=== PATIENT | male | born 1950 | race Two or more races ===

== ENCOUNTER 2020-04-19 08:33 | Outpatient (CLI) | payer OTHER, SELFPAY ==
--- NOTE | ~2020-04-19 | XR_ITS ---
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 The procedure including the risks, benefits, and alternatives was discussed with the pat ient. Risks discussed included bleeding and infection. The patient understood the risks and agreed to proceed. The skin overlying the left hip joint was prepped and draped in usual sterile fashion. An esthetic was administered with 1% lidocaine subcutaneously. A 22 G needle was advanced under fluoros copic guidance into the joint. Injection of 0.6 mL of Omnipaque 240 confirmed intra-articular positi on of the needle. Subsequently, injectate consisting of 7 mm of a 5:2 mixture of 1% lidocaine: 10 mg /mL Kenalog for a total dosage of 20 mg Kenalog was instilled. Washout of contrast was seen confirmin g intra-articular administration. The needle was removed and the entry site was cleaned and dressed. There were no immediate complications. Fluoroscopy exposure time was 0.1 minutes. The total number o f images was 2. FINDINGS: Real-time fluoroscopy demonstrates the needle in the left hip joint. Patient's pain prior t o procedure:4/10. Patient's pain following the procedure: 2/10. Large osteophyte versus heterotopic ossification along the superolateral margin of the left acetabulum near the footplate of the reflecte d head of the rectus femoris tendon. IMPRESSION: 1. Left hip joint injection of local anesthetic and steroid with decrease in the patient's presenting pain. Reviewed, dictated and finalized at location A. IMPRESSION: 1. Left hip joint injection of local anesthetic and steroid with decrease in th e patient's presenting pain.
== END 2020-04-19 08:34 | disposition home or self-care (01) ==
LOC: ANHIMG 08:46
PROVIDERS: PCP Family Medicine Adolescent Medicine; Visit Provider Orthopaedic Surgery
DX: M16.12 Unilateral primary osteoarthritis, left hip (principal)
CPT/HCPCS: 20610; 77002; J3301; Q9966

== ENCOUNTER 2021-02-11 08:20 | Outpatient (CLI) | payer OTHER, SELFPAY ==
--- NOTE | ~2021-02-11 | XR_ITS ---
EXAMINATION: XR lg joint inject/asp w image DATE: 02/11/2021 09:10 INDICATION: Unilateral primary osteoarthritis, left hip. TECHNIQUE: A time-out was performed to verify the patient's name, date of , and procedure to b e performed. The procedure including the risks, benefits, and alternatives was discussed with the pat ient. Risks discussed included bleeding and infection. The patient understood the risks and agreed to proceed. The skin overlying the left hip joint was prepped and draped in usual sterile fashion. An esthetic was administered with 1% lidocaine subcutaneously. A 22 G needle was advanced under fluoros copic guidance into the joint. Injection of 1 mL of Omnipaque 240 confirmed intra-articular position of the needle. Subsequently, injectate consisting of 5 mL 1% lidocaine and 2 mL 10 mg/mL Kenalog wa s instilled. The needle was removed and the entry site was cleaned and dressed. There were no immed iate complications. Fluoroscopy exposure time was 0.1 minutes. The total number of images was 2. FINDINGS: Real-time fluoroscopy demonstrates the needle in the left hip joint. Patient's pain prior t o procedure:09/15. Patient's pain following the procedure: 09/15. IMPRESSION: 1. Fluoroscopy guided left hip joint injection of local anesthetic and steroid . Reviewed, dictated and finalized at location A.
== END 2021-02-11 08:21 | disposition home or self-care (01) ==
PROVIDERS: PCP Family Medicine Adolescent Medicine; Visit Provider Orthopaedic Surgery
DX: M16.11 Unilateral primary osteoarthritis, right hip (principal)
CPT/HCPCS: 20610; 77002; J3301; Q9966

== ENCOUNTER → 2021-03-04 13:18 | Outpatient (CLI) | payer OTHER, SELFPAY ==
--- NOTE | ~2021-03-04 | XR_ITS ---
EXAMINATION: XR foot RT min 3V EXAM DATE: 03/04/2021 13:42 INDICATION: Worsening pain in right foot at 5th metatarsal. TECHNIQUE: Right foot dorsoplantar, lateral and oblique projections obtained and reviewed. There is no prior study for comparison. FINDINGS: Right metatarsal bones unremarkable. Small calcaneal spurs. There are no acute fractures o r dislocations identified. There is no subcutaneous gas. The soft tissue is unremarkable. There a re no radiopaque foreign bodies. There is mild polyarticular primary osteoarthritis. IMPRESSION: Mild right facet degenerative changes. Reviewed, dictated and finalized at location A.
== END ==
PROVIDERS: PCP Family Medicine Adolescent Medicine; Visit Provider Family Medicine Adolescent Medicine
DX: M79.671 Pain in right foot (principal)
CPT/HCPCS: 73630

== ENCOUNTER → 2021-06-24 11:01 | Outpatient (CLI) | payer OTHER, SELFPAY ==
--- NOTE | ~2021-06-24 | XR_ITS ---
EXAMINATION: XR shoulder RT min 2V DATE: 06/24/2021 11:48 INDICATION: Right shoulder pain. TECHNIQUE: 4 views of right shoulder were obtained. COMPARISON: None. FINDINGS: Bone alignment is normal. No fracture. There is mild osteoarthritis of glenohumeral joint a nd acromioclavicular joint. IMPRESSION: 1. Mild polyarticular osteoarthritis. Reviewed, dictated and finalized at location A.
== END ==
PROVIDERS: Visit Provider Orthopaedic Surgery
DX: M19.011 Primary osteoarthritis, right shoulder (principal)
CPT/HCPCS: 73030

== ENCOUNTER 2021-07-21 10:15 | Outpatient (RCR) | payer OTHER, SELFPAY ==
--- NOTE | 2021-06-30 11:04 | PTOPEVAL ---
Thank you for referring Faizan Whiteside to [facility].? The patient is scheduled to be seen for therapy 2 x/week for 4 weeks. Please review, sign, date and return this plan of care JOHN. I agree with and certify that the following plan of care is medically necessary. Referring Physician Date Attending Provider: Ryan Bernardo MD Problem Diagnosis right shoulder pain Onset chronic Subjective Information He works out 1x/wk with bands, Query Text:As Reported By Patient/ he walks daily for 1 mile. He Family reports increased ache pain of his shoulder. Increased pain with golf.Denies any limitations with reaching task for ADL's. He has increased pain with heavy lifting, yardwork. If he sleeps on right shoulder he will have increased pain. Diagnostic Tests X-Rays For This Problem Yes: Mild polyarticular osteoarthritis Pain Assessment Right Shoulder(s) Reported Pain Level 1 Pain Description Aching Pain Frequency Chronic Lowest Pain Intensity 1 Greatest Pain Intensity 7 Pain Aggravating Factors Exercise/Activity,Lifting Pain Behaviors None Upper Extremity Range of Motion Scapular/ Shoulder Range of Motion Left Shoulder Flexion - Active 150 Shoulder Extension - Active 42 Shoulder Abduction - Active 160 Shoulder Medial Rotation - Active 70 Shoulder Medial Rotation - Active L1:Reach Behind the Back Shoulder Lateral Rotation - Active 70 Shoulder Lateral Rotation - Active T2:Reach Behind the Head Right Shoulder Flexion - Active 147 Shoulder Extension - Active 48 Shoulder Abduction - Active 148 Shoulder Medial Rotation - Active 60 Shoulder Medial Rotation - Active T12:Reach Behind the Back Shoulder Lateral Rotation - Active 70 Shoulder Lateral Rotation - Active T2:Reach Behind the Head Scapular/Shoulder Range of Motion Pain Limitations Upper Extremity Muscle Strength Testing General Upper Extremity Strength Gross Upper Extremity Strength Comments grossly 4+/5 with pain with right ext. rot. resistance only boom middle trap: 2+/5, lower trap 2/5 Muscle Length Testing Latissmus Dorsi Muscle Length (R) Severe Tightness,(L) Severe Tightness Pectoralis Major- Sternal Fibers Muscle (R) Moderate Tightness,(L) Length Moderate Tightness Pectoralis Major- Clavicular Fibers (L) Mild Tightness,(L)
--- NOTE | 2021-07-28 10:19 | PCPTNOTE ---
Patient did not show up for scheduled appointment this date. Called and left message regarding his remaining visits.
--- NOTE | 2021-07-28 13:49 | PCPTNOTE ---
Admitting Provider: Attending Provider: Ryan Bernardo MD Patient:Faizan Whiteside Date of :1950 Physical Therapy Discharge Summary Patient has requested his remaining therapy visits be canceled due to does not feel therapy is improving his shoulder pain and limitations. He initial visit was on 06/30/2021 10:00 and he had a total of 6 visits. The goals have been not met due to canceled his reassessment. Thank you for referring this patient to [facility]. Please review, sign, date and return this discharge summary JOHN. I have been updated about the patient's current status and I agree with discharge from the above service at this time. Referring Physician Date
== END 2021-07-29 09:29 | disposition home or self-care (01) ==
LOC: ANHPT 10:15
PROVIDERS: PCP Family Medicine Adolescent Medicine; Visit Provider Orthopaedic Surgery
DX: M25.511 Pain in right shoulder (principal); G89.29 Other chronic pain
CPT/HCPCS: 97014; 97110; 97140; 97162; G0283

== ENCOUNTER → 2021-09-01 07:45 | Outpatient (CLI) | payer OTHER, SELFPAY ==
--- NOTE | ~2021-09-01 | MR_ITS ---
EXAMINATION: MR shoulder RT wo con DATE: 09/01/2021 08:38 INDICATION: Right shoulder pain. TECHNIQUE: Magnetic resonance imaging (MRI) of the right shoulder was performed without intravenous c ontrast. Sequences included axial PD-weighted FS FSE, coronal oblique PD-weighted FS FSE and T2-weigh pamela FS FSE, and sagittal oblique T2-weighted FS FSE and T1-weighted FSE. COMPARISON: Right shoulder radiographs 06/24/2021 FINDINGS: Coracoacromial arch: The acromion undersurface is flat in morphology (type I). There is hypertrophy of bone at the acromio clavicular joint. There may be changes of distal clavicle resection. There is mild subacromial/subdel toid bursitis. There is an 8 x 5 mm ganglion cyst anterior to the acromioclavicular joint. Rotator cuff: There is severe anterior supraspinatus tendinopathy with bursal sided fraying. There is moderate infr aspinatus tendinopathy. Teres minor tendon is normal. There is mild subscapularis tendinopathy. There is mild fatty atrophy of the rotator cuff muscle bellies. Biceps tendon and glenoid labrum: Biceps tendon is in bicipital groove. Intra-articular biceps tendon is normal. There is a tear of sup erior labrum from 11:00 to 12:00 (SLAP tear). Fluid: There is a small glenohumeral joint effusion. Bones/cartilage: There is cartilage surface irregularity of glenoid and humeral head. IMPRESSION: 1. Severe rotator cuff tendinopathy with shallow bursal sided fraying of supraspinatus tendon. 2. Mild glenohumeral joint chondrosis. SLAP tear. 3. Small glenohumeral joint effusion. 4. Mild subacromial/subdeltoid bursitis. 5. Small ganglion cyst anterior to the acromioclavicular joint. Reviewed, dictated and finalized at location A. D CONSULTANT IMPRESSION: 1. Severe rotator cuff tendinopathy with shallow bursal sided fraying of supras pinatus tendon. 2. Mild glenohumeral joint chondrosis. SLAP tear. 3. Small glenohumeral joint effusion. 4. Mild subacromial/subdeltoid bursitis. 5. Small ganglion cyst anterior to the acromioclavicular joint.
== END ==
PROVIDERS: PCP Family Medicine Adolescent Medicine; Visit Provider Orthopaedic Surgery
DX: M75.51 Bursitis of right shoulder (principal); M25.411 Effusion, right shoulder
CPT/HCPCS: 73221

== ENCOUNTER 2021-10-13 08:28 | Outpatient (CLI) | payer OTHER, SELFPAY ==
--- NOTE | 2021-10-13 08:45 | ECG_ITS ---
Measurements Intervals [place] Rate: 71 P: 31 MS: 177 QRS: 5 QRSD: 97 T: 40 QT: 349 QTc: 380 Interpretive Statements SINUS RHYTHM INCOMPLETE RIGHT BUNDLE BRANCH BLOCK BASELINE ARTIFACT- I, II, III, AVR, AVL, AVF, V4-V6 BORDERLINE ECG Electronically Signed On 10-13-2021 9:01:56 MILKING MACHINE OPERATOR by Thierno Garcia D.O.
[2021-10-13 11:02] LABS: Anion Gap 6 mmol/L (8-16); Blood Urea Nitrogen 16 mg/dL (9-20); Calcium 9.2 mg/dL (8.4-10.2); Carbon Dioxide 24 mmol/L (22-30); Chloride 105 mmol/L (98-107); Estimated Glomerular Filt Rate > 60; Glucose 157 mg/dL (65-110); Potassium 4.3 mmol/L (3.4-5.0); Sodium 135 mmol/L (137-145)
== END 2021-10-13 08:29 | disposition home or self-care (01) ==
LOC: ANHSURGERY 08:34
PROVIDERS: Anesthesiology; PCP Family Medicine Adolescent Medicine; Visit Provider Orthopaedic Surgery
DX: Z01.818 Encounter for other preprocedural examination (principal); E11.9 Type 2 diabetes mellitus without complications; I10 Essential (primary) hypertension
CPT/HCPCS: 36415; 80048; 93005

== ENCOUNTER 2021-10-20 02:03 | Day surgery (SDC) | payer OTHER, SELFPAY ==
[2021-10-10 15:13] VITALS: BMI 28.6
--- NOTE | 2021-10-10 15:31 | PC.NURSE ---
Report to the Outpatient Waiting Room, entrance under the green pavilion located off [facility], at time __11:30AM on date _10/20/21 . OR Time: ___1:30PM . - You will be asked a series of questions to screen for COVID 19 for your protection. - A mask is required within the hospital. - No visitors are allowed at this time. Preoperative COVID Testing Requirements: No COVID Test needed if: (proof is required; if not received patient will have Rapid Test prior to entry) - Patient has received COVID Vaccine at least 14 days prior to procedure date or - Patient has positive COVID test result within last 90 days of surgery date. COVID Test needed if above criteria is not met If not COVID vaccinated a COVID test must be conducted within 72 hours of surgery and patient is asked to isolate self from time of testing until procedure. You will go to the [employer] [facility] Testing Site for your COVID testing. The [employer] [facility] is located at the corner of [address] [facility]. You will only be called if COVID results are positive and your surgeon may reschedule your elective surgery date. Patients may have clear liquids (water, carbonated beverages, clear teas, apple juice) until 3 hours prior to surgery with a maximum of 20 ounces. - No food from midnight until time of surgery - Infants may have breast milk until 4 hours before surgery, infant formula 6 hours prior to surgery. - Children will be allowed to drink immediately following surgery. If applicable, please bring a bottle or sippy cup to assist with drinking. Juice, water, soda, and popsicles are readily available. For infants on formula, please bring formula the day of surgery. Pacifiers are allowed. Take the following medications with a SIP of water the morning of surgery: ____NONE Medications to discontinue per physician NONE Date to take last dose Please no make-up, nail syriac, hairspray, perfume, deodorant, or body powder the day of surgery. No jewelry (including any body piercings) or valuables the day of surgery, leave them at home. Please take a shower or bath the night before, or the morning of, surgery with an antibacterial soap. Wear comfortable, loose fitting clothing. Children are encouraged to wear pajamas. - Jewelry must be removed prior to entering the operating room. Rings and piercings that are not removed may be cut off. - The hospital will not accept responsibility for valuables. - Please leave all valuables, including medications, at home the day of surgery. If you are going home after surgery, a licensed shuttle bus driver must drive you home. - NO public transportation without another adult. - We recommend that an adult stay with you for 24 hours following discharge. - We also recommend that you do not drive, make important decision, drink alcoholic beverages, or take any drugs that were not prescribed by your health care provider for at least 24 hours after your discharge time. For Pediatric surgeries, we recommend two adults accompany the child home (only one inside the building at this time). Follow any additional instructions given to you from your surgeon. Telephone instructions given to __PATIENT and asked if any additional questions and then verbalized understanding. Patient advised to call surgeon office or pre surgery nurse liaison [phone] if any additional questions.
[2021-10-20] VITALS (8 sets, daily range): BP systolic 105–152; BP diastolic 67–84; PULSE 62–82; RESP 12–16; TEMP 36.2–36.5; O2SAT 96–100
--- NOTE | 2021-10-20 07:57 | WPDANESEPPF ---
Anes - Initial Pre Proc Eval Procedure: Operation Date: 10/20/21 10:30 Proposed Procedures p Right Shoulder Acromioplasty with Distal Clavicle Excision - Ryan Bernardo MD Date/Time: 10/20/21 07:57 Surgeon: Ryan Bernardo MD Pre Op Diagnosis: right shoulder impingement AC arthritis Patient Data Age: 71 Gender: M Height: 1.7 m Weight: 83 kg Allergies Allergy/AdvReac Type Severity Reaction Status Date / Time morphine Allergy Unknown Dyspnea / Verified 10/14/21 13:07 SOB Home Medications Medication Instructions Recorded Confirmed Type glimepiride 1 mg tablet 1 mg PO BID 04/18/20 10/14/21 History ibuprofen 200 mg tablet 400 mg PO Q6H PRN 04/18/20 10/14/21 History losartan 100 mg tablet 100 mg PO HS 04/18/20 10/14/21 History metformin 500 mg tablet 500 mg PO QAM 04/18/20 10/14/21 History pantoprazole 40 mg tablet,delayed 40 mg PO HS 04/18/20 10/14/21 History release acetaminophen 325 mg capsule 650 mg PO Q6H PRN 07/30/20 10/14/21 History Patient hx anesthesia problems: none Family hx anesthesia problems: none Results Review: All pre-operative results and documents have been reviewed as part of the pre-operative evaluation. [facility] Past Medical History Medical History (Updated 10/20/21 @ 07:59 by Rodney Ragsdale MD) BMI 27.0-27.9,adult BPH (benign prostatic hyperplasia) Chronic GERD Diabetes Hemoglobin A1c less than 7.0% last noted to be 6.0 by pt HTN (hypertension) Hyperlipidemia Osteoarthritis Osteoarthritis of hips, bilateral Surgical History Surgical History H/O elbow surgery right elbow, 1999, Dr. Garcia H/O shoulder surgery bilateral, 2009 & 2014 Dr Dave History of neck surgery 1999 - neck fusion by Dr. Emerson Family History Family History Father Family history of lung cancer Mother Cancer Other Diabetes mellitus Hypertension Social History Social History Smoking packs per day: 1.5 Smoking cigarettes per day: 30.0 Years smoked: 25 Smoking pack-years: 37.50 Smoking status: Former smoker Tobacco type: cigarettes Smoking end date: 03/06/90 Alcohol intake: current Drinks per week: 3 Substance use: never Living arrangements: with family Additional living arrangements comments: AND CHILDREN Gender identity (if verbalized by the patient): Male Spiritual care concerns: No Anes - Eval Final PreProcedure Day of Procedure 10/20/21 07:57 Patient weight: overweight Heart: regular rate and rhythm Lungs: clear to auscultation and normal air movement Airway: Mallampati scale class II Neurological: alert and oriented Last oral intake: >/= 8 hours ASA classification: III Emergent: no Anesthetic plan: proceed Anesthesia type and monitoring: general LMA and ETT Results Review: All pre-operative results and documents have been reviewed as part of the pre-operative evaluation. Informed Consent: The patient's anesthetic plan and its attendant risks and benefits were discussed with the patient/family/POA. Questions were solicited and answers provided to the satisfaction of the patient/family/POA.
--- NOTE | 2021-10-20 07:59 | WPDANESPNB ---
Anes - Peripheral Nerve Block Date/Time: 10/20/21 07:59 I have discussed with the patient/family/POA the placement of a peripheral nerve block for post-operative pain management, including associated risks, benefits, complications, and side effects. Alternative methods of post-operative analgesia were detailed. Questions were solicited and answers provided to the satisfaction of the patient/family/POA. Time-Out: A pre-procedural Time-Out was completed immediately before starting the procedure and confirmed: Patient Identification, Site, Procedure, Patient Position and the Availability of Requisite Equipment. Clinical Indications: Acute post-operative pain management requested by the operative surgeon. Nerve Block Insertion Note Anes-nerve block: supraclavicular right Patient position: supine Skin prep: chlorhexidine Needle: 22 gauge, stimulating, insulated echogenic needle. Needle length: 80 mm Technique: ultrasound (in plane) Injectate: bupivacaine 0.5% with epi 5 mcg/ml (20cc) Observations: tolerated well Complications: none Procedure start time:: 1015 Procedure end time:: 1020
[2021-10-20] MEDS: ACETAMINOPHEN 500 MG TABLET 1000 MG PO (09:03)
[2021-10-20] MEDS: LACTATED RINGERS 1,000 ML 30 ML IV CONT ×2 (09:16→11:56)
[2021-10-20] MEDS: KETOROLAC 15 MG/ML VIAL (*BKC) IV PUSH (09:17)
[2021-10-20 09:25] LABS: Glucose Point of Care 158 mg/dl (65-105)
--- NOTE | 2021-10-20 09:32 | WPDHPUPDATE1 ---
History and Physical Update Update Date/Time: 10/20/21 09:32 History and Physical has been reviewed, including an updated exam of the patient. There are NO changes in the patient's condition. Risks, benefits, and alternatives have been discussed and questions answered. Patient agrees to proceed with procedure.
[2021-10-20] MEDS: ceFAZolin 2 GM/D5W 50 ML 2 GM/50 ML BAG IVPB (10:26)
[2021-10-20] MEDS: BUPIVACAINE/EPINEPHRINE 0.25% 10 ML VIAL INFILTRATE (11:04)
--- NOTE | 2021-10-20 11:52 | P.OP_ITS ---
Procedure Note - Detailed Date of Procedure 10/20/21 Pre-op Diagnosis right shoulder impingement AC arthritis Post-op Diagnosis same Procedure Performed Right shoulder acromioplasty, distal clavicle excision Surgeon Ryan Bernardo MD Electrician Constructor Supervisor Mahi Whaley Anesthesia general and regional Description of Procedure Patient was identified and proper site identified. In the preop holding area the anesthesia team performed a right upper extremity block. He was then taken to the operating room and transferred to the or table taking care to pad the torso and extremities. After general anesthetic induction and intubation, he was put in a semi beach chair position in the usual manner for a right shoulder procedure. His head was secured taking care to neither rotate nor extend the head and neck. The right upper extremity was prepped and draped free in usual sterile fashion. The subcutaneous tissue in the area of the incision was injected with 10 cc of 0.25% Marcaine and epinephrine solution. An oblique anterior incision was made extending from the AC joint distally in line with the fibers of the deltoid. Subcutaneous tissue was sharply dissected down to the deltoid fascia. The deltoid was dissected off the anterior portion of the acromion in the distal end of the clavicle. A 2 cm split was made at the junction between the anterior and middle thirds of the deltoid. Using the microsagittal saw the last 8 mm of clavicle removed. The saw was also used to perform the acromioplasty and then the undersurface of the acromion was rasped smooth. There was quite a bit of scarring in the area of the subacromial and subdeltoid space. This was freed up and then this allowed for debridement thickened bursa. After this was accomplished, the cuff was able to be inspected. There was an area of hyperemia the anterior portion of the supraspinatus insertion but no evidence for any full-thickness tearing. The wound was irrigated with sterile NaCl solution. The deltoid was repaired back to the acromion with 2. Ethibond suture passed through bone and the remainder of the deltoid repair carried out with 2. Vicryl. Subcutaneous tissue was reapproximated with 2. Strata fix and then tissue adhesive used for the skin. Sterile dressing was applied. There were no known intraoperative complications, and perioperative antibiotics were administered. Estimated Blood Loss 20 Drains No Packing No Pathology none sent Complications No immediate complications Condition stable Disposition PACU
[2021-10-20 12:15] LABS: Glucose Point of Care 169 mg/dl (65-105)
== END 2021-10-20 14:00 | disposition home or self-care (01) ==
PROVIDERS: PCP Family Medicine Adolescent Medicine; Visit Provider Orthopaedic Surgery
PROC: (CPT 23420; principal; 2021-10-20 10:30)
DX: M75.41 Impingement syndrome of right shoulder (principal); M19.011 Primary osteoarthritis, right shoulder; G89.18 Other acute postprocedural pain; I10 Essential (primary) hypertension; E11.9 Type 2 diabetes mellitus without complications; E78.5 Hyperlipidemia, unspecified; K21.9 Gastro-esophageal reflux disease without esophagitis; N40.0 Benign prostatic hyperplasia without lower urinary tract symptoms; Z79.84 Long term (current) use of oral hypoglycemic drugs; Z98.1 Arthrodesis status; Z87.891 Personal history of nicotine dependence
CPT/HCPCS: 23120; 23130; 64415; 36415; 80048; 82948; 93005; A4565; A9270; J0330; J0690; J1100; J1885; J2250; J2405; J2704; J3010; J7120

== ENCOUNTER 2021-10-21 03:46 | Emergency (ER) | payer OTHER, SELFPAY ==
--- NOTE | ~2021-10-21 | CT_ITS ---
EXAMINATION: CTA chest PE protocol DATE: 10/21/2021 06:52 INDICATION: Shortness of breath. Anterior chest wall pain. TECHNIQUE: Computed tomography angiography (CTA) of the chest was performed with 100 mL Omnipaque-350 intravenous contrast timed to evaluate the pulmonary arteries. Coronal maximum intensity projection 3D-reconstructions were created by the technologist. Automated exposure control and iterative reconst ruction technique were employed. The dose-length product was 651.69 mGy-cm. COMPARISON: Chest single view 10/21/2021 FINDINGS: There is mild atelectasis in the lungs, worst in right lower lobe. There is mild elevation of right hemidiaphragm. No pleural effusion. The heart size is normal. No pericardial effusion. A marie cified right hilar lymph node is consistent with old granulomatous disease. There is no pulmonary emb olus. There is diffuse hepatic steatosis. There are gallstones in the gallbladder, which is normal in size. There are bridging endplate osteophytes at multiple levels in the spine, consistent with diffu se idiopathic skeletal hyperostosis (DISH). IMPRESSION: 1. No pulmonary embolus. 2. Mild atelectasis in the lungs, worst in right lower lobe with mild elevation of right hemidiaphrag m. Reviewed, dictated and finalized at location A. MENT CONTROL CLERK IMPRESSION: 1. No pulmonary embolus. 2. Mild atelectasis in the lungs, worst in right lower lobe with mild elevation of right hemidiaphragm.
--- NOTE | ~2021-10-21 | XR_ITS ---
EXAMINATION: XR chest 1V portable DATE: 10/21/2021 04:29 INDICATION: Shortest of breath. Chest pain. TECHNIQUE: A single frontal view of the chest was obtained. COMPARISON: Chest 2 views 10/13/2016, chest CT 10/21/2021 FINDINGS: There is mild elevation of right hemidiaphragm. There is mild atelectasis at right lung bas e. No pleural effusion or pneumothorax. The heart size is normal. IMPRESSION: 1. Mild atelectasis at right lung base and worsened mild elevation of right hemidiaphragm. Reviewed, dictated and finalized at location A. ING MACHINE OPERATOR IMPRESSION: 1. Mild atelectasis at right lung base and worsened mild elevation of right hem idiaphragm.
[2021-10-21 03:55] VITALS: BP 173/99; PULSE 73; RESP 19; O2SAT 100
--- NOTE | 2021-10-21 04:02 | ECG_ITS ---
Measurements Intervals [place] Rate: 87 P: 20 UT: 184 QRS: 0 QRSD: 102 T: 28 QT: 352 QTc: 424 Interpretive Statements SINUS RHYTHM INCOMPLETE RIGHT BUNDLE BRANCH BLOCK DELAYED PRECORDIAL R/S TRANSITION BASELINE ARTIFACT- I, III, AVL, AVF, V4-V6 BORDERLINE ECG Electronically Signed On 10-21-2021 6:27:15 FOOD PREPARATION WORKER by Thierno Garcia D.O.
[2021-10-21 04:08] VITALS: BP 173/99; PULSE 88; RESP 14; TEMP 36.5; O2SAT 97
[2021-10-21 04:40] LABS: Basophils Percent Auto 0.2 % (0.2-1.2); Eosinophils Percent Auto 0.2 % (0-4.4); Hematocrit 39.9 % (42.0-52.0); Hemoglobin 13.5 g/dL (14.0-18.0); Immature Granulocyte Absolute 0.03 K/mm3 (0.00-0.031); Immature Granulocyte Percent A 0.2 % (0-0.5); Lymphocytes Absolute Auto 1.64 K/mm3 (0.9-3.2); Lymphocytes Percent Auto 13.6 % (18.3-44.2); Mean Corpuscular HGB Conc 33.8 g/dl (32-36); Mean Corpuscular Hemoglobin 31.8 pg (26-34); Mean Corpuscular Volume 93.9 fl (80-100); Mean Platelet Volume 9.6 fl (7.4-10.4); Monocytes Absolute Auto 1.6 K/mm3 (0.1-0.6); Monocytes Percent Auto 13.2 % (2.6-8.5); Neutrophils Absolute Auto 8.7 K/mm3 (1.3-6.7); Neutrophils Percent Auto 72.6 % (45.5-73.1); Platelet Count Result 178 k/mm3 (150-375); Red Blood Count 4.25 M/mm3 (4.6-6.20); Red Cell Distribution Width 13.3 % (11.5-14.5)
[2021-10-21 04:55] LABS: Alanine Aminotransferase 59 U/L (4-50); Albumin Level 4.5 g/dL (3.5-5.1); Alkaline Phosphatase 96 U/L (38-126); Anion Gap 11 mmol/L (8-16); Aspartate Amino Transferase 40 U/L (17-59); Bilirubin,Total 0.5 mg/dL (0.2-1.3); Blood Urea Nitrogen 15 mg/dL (9-20); Calcium 8.8 mg/dL (8.4-10.2); Carbon Dioxide 23 mmol/L (22-30); Chloride 107 mmol/L (98-107); Estimated CRCL calculation 64 ml/min; Estimated Glomerular Filt Rate > 60; Glucose 143 mg/dL (65-110); Lipase 168 U/L (23-300); Potassium 4.6 mmol/L (3.4-5.0); Prothrombin Time 12.6 Seconds (11.1-14.7); Sodium 141 mmol/L (137-145)
[2021-10-21 04:58] LABS: D Dimer 0.37 ug/mL (<0.48)
[2021-10-21 05:06] LABS: Troponin I < 0.012 ng/mL (0.000-0.034)
[2021-10-21 05:17] LABS: NT Pro B Type Natriuretic Pept 189 pg/mL (5-100)
--- NOTE | 2021-10-21 06:05 | ED.SOB ---
HPI - SOB/Dyspnea General Chief Complaint: Shortness of Breath/Dyspnea Stated Complaint: short of breath Time Seen by Provider: 10/21/21 04:31 Source: patient Mode of arrival: ambulatory Limitations: no limitations History of Present Illness HPI Narrative: Patient is a 71-year-old male complaining of I just cannot take a deep breath accompanied by shortness of breath on exertion that started last night. Patient states that he recently had shoulder surgery yesterday. Patient denies any chest pain, abdominal pain, and nausea, vomiting, diaphoresis, fever or chills. Related Data Home Medications Medication Instructions Recorded Confirmed glimepiride 1 mg tablet 1 mg PO BID 04/18/20 10/20/21 ibuprofen 200 mg tablet 400 mg PO Q6H PRN 04/18/20 10/20/21 losartan 100 mg tablet 100 mg PO HS 04/18/20 10/20/21 metformin 500 mg tablet 500 mg PO QAM 04/18/20 10/20/21 pantoprazole 40 mg tablet,delayed 40 mg PO HS 04/18/20 10/14/21 release acetaminophen 325 mg capsule 650 mg PO Q6H PRN 07/30/20 10/20/21 Allergies Allergy/AdvReac Type Severity Reaction Status Date / Time morphine Allergy Unknown Dyspnea / Verified 10/20/21 12:07 SOB Review of Systems Review of Systems: All systems reviewed & are unremarkable except as noted in HPI and below Constitutional: Constitutional: Denies body ache(s), Denies chills, Denies excessive sweating, Denies fatigue, Denies fever(s), Denies headache(s), Denies lethargy, Denies malaise, Denies weakness and Denies weight loss Eyes: Eyes: Denies blurry vision, Denies change in vision and Denies loss of vision ENT: Denies dizziness, Denies ear discharge, Denies headache(s), Denies lip swelling, Denies epistaxis, Denies nasal congestion, Denies neck pain, Denies throat swelling and Denies tongue swelling Cardiovascular: Cardiovascular: Denies chest pain, Denies chest pain at rest, Denies chest pain with activity, Denies diaphoresis, Denies rapid heart rate, Denies edema, Denies irregular heart rhythm, Denies lightheadedness and Denies palpitations Respiratory: Respiratory: Denies chest congestion, Denies cough and Denies hemoptysis Gastrointestinal: Gastrointestinal: Denies abdominal pain, Denies melena, Denies hematochezia, Denies diarrhea, Denies nausea, Denies vomiting and Denies hematemesis Musculoskeletal: Musculoskeletal: Denies abnormal gait, Denies deformity, Denies joint swelling, Denies limited range of motion, Denies neck pain and Denies numbness Neurologic: Denies Abnormal speech present, Denies abnormal gait, Denies confusion, Denies dizziness, Denies headache(s), Denies focal weakness, Denies loss of vision, Denies numbness, Denies Other visual disturbances, Denies Sensory deficit (Neuro) and Denies weakness Psychiatric: Psychiatric: Denies confusion, Denies depression, Denies auditory hallucinations, Denies homicidal ideation and Denies suicidal ideation Endocrine: Endocrine: Denies cold intolerance, Denies excessive sweating, Denies fatigue, Denies heat intolerance and Denies palpitations Hematologic/Lymphatic: Hematologic/Lymphatic: Denies easy bleeding and Denies easy bruising Allergic/Immunologic: Allergic/Immunologic: Denies lip swelling, Denies throat swelling and Denies tongue swelling PMFSH Past Medical History Medical History BMI 27.0-27.9,adult BPH (benign prostatic hyperplasia) Chronic GERD Diabetes Hemoglobin A1c less than 7.0% last noted to be 6.0 by pt HTN (hypertension) Hyperlipidemia Osteoarthritis Osteoarthritis of hips, bilateral Surgical History Surgical History Arthritis of right acromioclavicular joint DCE with acromioplasty October 10, 2021 H/O elbow surgery right elbow, 2000, Dr. Garcia H/O shoulder surgery bilateral, 2009 & 2014 Dr Dave History of neck surgery 1999 - neck fusion by Dr. Emerson Family History Family History (Rev
[2021-10-21] MEDS: LACTATED RINGERS 1,000 ML 999 ML IV CONT (06:56)
[2021-10-21 07:26] LABS: Troponin I < 0.012 ng/mL (0.000-0.034)
[2021-10-21 08:03] VITALS: BP 164/81; PULSE 74; RESP 18; O2SAT 98
== END 2021-10-21 08:03 | disposition home or self-care (01) ==
PROVIDERS: Emergency Medicine; Emergency Provider Emergency Medicine; PCP Family Medicine Adolescent Medicine
DX: R06.00 Dyspnea, unspecified (principal); Z98.890 Other specified postprocedural states; E11.9 Type 2 diabetes mellitus without complications; I10 Essential (primary) hypertension; E78.5 Hyperlipidemia, unspecified; N40.0 Benign prostatic hyperplasia without lower urinary tract symptoms; K21.9 Gastro-esophageal reflux disease without esophagitis; M16.0 Bilateral primary osteoarthritis of hip; Z79.84 Long term (current) use of oral hypoglycemic drugs; Z87.891 Personal history of nicotine dependence
CPT/HCPCS: 36415; 71045; 71275; 80053; 83690; 83880; 84484; 85025; 85380; 85610; 85730; 93005; 96360; 99284; J7120; Q9967

== ENCOUNTER 2021-11-17 11:00 | Outpatient (RCR) | payer OTHER, SELFPAY ==
[2021-10-22 12:33] VITALS: BP_SYST 100
--- NOTE | 2021-10-22 13:26 | PTOPEVAL ---
PHYSICAL THERAPY EVALUATION AND PLAN OF CARE Thank you for referring Faizan Wh[facility] to [facility] The patient is scheduled to be seen for therapy? 2x/week for 4 weeks. Please review, sign, date and return this plan of care JOHN. I agree with and certify that the following plan of care is medically necessary. Referring Physician Date Attending Provider: Ryan Bernardo MD Evaluation Diagnosis right acromioplasty Onset 10/20/21 Subjective Information surgery for acromioplasty of Query Text:As Reported By Patient/ right shoulder; distal Family clavical excision. States he was told by physician to avoid reaching overhead. He is doing well overall. Has his sling around his neck but his arm is not in it. Self Report Pain Assessment Right Shoulder(s) Reported Pain Level 2 Pain Description Aching Greatest Pain Intensity 5 Pain Aggravating Factors Procedure or Surgery Other Pain Aggravating Factors using the arm; Pain Score Pain Score 2: Self Report Interventions Used Interventions Used By Clinicians Exercise,Manual Therapy Techniques Pain Relief Interventions Used By Ice,Medication Patient Upper Extremity Range of Motion Scapular/ Shoulder Range of Motion Right Shoulder Flexion - Passive 120 Shoulder Abduction - Passive 100 Shoulder Lateral Rotation - Passive 45 Scapular/Shoulder Range of Motion pain and discomfort noted when Comments performing PROM Upper Extremity Muscle Strength Testing General Upper Extremity Strength Gross Upper Extremity Strength Comments internal rotation at neutral: 4/5 external rotaiton at neutral: 3+/5; pain did not perform elevation MMT due to surgical procedure Posture Standing Position Head/C-Spine Posture Forward Head Thoracic Spine Posture Increased Kyphosis Shoulder Posture (L) Rounded,(R) Rounded,(L) Forward,(R) Forward Scapula Posture (L) Protracted,(R) Protracted PT Clinical Summary Faizan Gar) is a 71 yo male presenting to outpatient physical therapy 2 days s/p right acromioplasty and DCE. He presents with a good amount of swelling - educated on using elbow and wrist AROM to move fluid out of arm. Dante
--- NOTE | 2021-11-17 11:25 | PTOPEVAL ---
PHYSICAL THERAPY DISCHARGE NOTE Thank you for referring Faizan Whiteside to [facility].? Please review, sign, date and return this plan of care JOHN. I agree with and certify that the following plan of care is medically necessary. Referring Physician Date Attending Provider: Ryan Bernardo MD Discharge Diagnosis right acromioplasty Onset 10/20/21 Subjective Information surgery for acromioplasty of Query Text:As Reported By Patient/ right shoulder; distal Family clavical excision. States he was told by physician to avoid reaching overhead. He is doing well overall. Has his sling around his neck but his arm is not in it. Pain Assessment Timing of Pain Assessment Timing of Pain Assessment Assessment Self Report Self Report Pain Level 0 Pain Score Pain Score 0: Self Report Interventions Used Interventions Used By Clinicians Exercise,Ice,Manual Therapy Techniques Pain Relief Interventions Used By Ice,Medication Patient Upper Extremity Range of Motion Scapular/ Shoulder Range of Motion Right Shoulder Flexion - Active 150 Shoulder Abduction - Active 150 Shoulder Medial Rotation - Active L3 Query Text:Reach Behind the Back Shoulder Lateral Rotation - Passive 65 Scapular/Shoulder Range of Motion pain and discomfort noted when Comments performing PROM Upper Extremity Muscle Strength Testing Scapular/Shoulder Right Shoulder Flexion Strength 5 Normal Shoulder Abduction Strength 4+ Good + Shoulder Medial Rotation Strength 5 Normal Shoulder Lateral Rotation Strength 5 Normal Special Tests-Upper Extremity Shoulder Special Tests Empty Can (supraspinatus) Test Negative Right Painful Arc Negative Right General Exercise General Exercises Side Right Exercise Location shoulder Exercise Type Active,Active/Assistive Exercise Description reviewed HEP stretches and Query Text:Record Sets, Reps, strengthening exercises Resistance, and Position 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
== END 2021-11-18 10:23 | disposition home or self-care (01) ==
LOC: ANHPT 11:00
PROVIDERS: PCP Family Medicine Adolescent Medicine; Visit Provider Orthopaedic Surgery
DX: Z48.89 Encounter for other specified surgical aftercare (principal); Z98.890 Other specified postprocedural states
CPT/HCPCS: 97110; 97140; 97162; 97530

== ENCOUNTER → 2022-03-26 10:29 | Outpatient (CLI) | payer SELFPAY ==
--- NOTE | ~2022-03-26 | CT_ITS ---
EXAMINATION: CT abdomen pelvis w con DATE: 03/26/2022 10:59 INDICATION: Left lower quadrant abdominal pain. TECHNIQUE: Computed tomography (CT) of the abdomen and pelvis was performed with 100 mL Omnipaque 350 intravenous contrast. Automated exposure control and iterative reconstruction technique were employe d. The dose-length product was 872.10 mGy-cm. COMPARISON: None. FINDINGS: The visualized portions of the lung bases demonstrate minimal atelectasis. No pleural effus ion. The heart size is normal. No pericardial effusion. There are cysts in the liver measuring up to 12 mm. The spleen is normal. There are gallstones in the gallbladder, which is normal in size. The pa ncreas, adrenal glands, and kidneys are normal. The prostate is mildly enlarged. Densities in the pro state may be brachytherapy seeds. There is a left inguinal hernia containing fat. There are no dilate d loops of bowel. The appendix is normal. There are no pathologically enlarged lymph nodes. There is no free intraperitoneal fluid. There is mild lumbar spondylosis. IMPRESSION: 1. Left inguinal hernia containing fat. Reviewed, dictated and finalized at location A.
[2022-03-31 10:27] LABS: Estimated Glomerular Filt Rate > 60
== END ==
PROVIDERS: PCP Family Medicine Adolescent Medicine; Visit Provider Family Medicine Adolescent Medicine
DX: R10.32 Left lower quadrant pain (principal); K40.90 Unilateral inguinal hernia, without obstruction or gangrene, not specified as recurrent
CPT/HCPCS: 36415; 74177; 82565; Q9967

== ENCOUNTER 2022-04-23 01:03 | Day surgery (SDC) | payer OTHER, SELFPAY ==
[2022-04-20 10:42] VITALS: BMI 29.0
--- NOTE | 2022-04-20 10:49 | PC.NURSE ---
Report to the Outpatient Waiting Room, entrance under the green pavilion located off [facility], at time __1000 on date _04/23/22 . OR Time: ___1200 . - You and your visitor will be asked to self-screen and do not enter if you have any COVID symptoms. - Only one visitor and NO children visitors are allowed at this time. - The patient visitor is requested to leave or wait in car when not with patient due to restrictions. - A mask is required within the hospital. Patients may have clear liquids (water, carbonated beverages, clear teas, apple juice) until 3 hours prior to surgery (0900 AM) with a maximum of 20 ounces. - No food from midnight until time of surgery - Infants may have breast milk until 4 hours before surgery, formula 6 hours prior to surgery. - Children will be allowed to drink immediately following surgery. If applicable, please bring a bottle or sippy cup to assist with drinking. Juice, water, soda, and popsicles are readily available. For infants on formula, please bring formula the day of surgery. Pacifiers are allowed. Take the following medications with a SIP of water the morning of surgery: ____BACLOFEN IF NEEDED Medications to discontinue per physician IBUPROFEN PER DR. SINHA Date to take last dose Please no make-up, nail austrian, hairspray, perfume, deodorant, or body powder the day of surgery. No jewelry (including any body piercings) or valuables the day of surgery, leave them at home. Please take a shower or bath the night before, or the morning of, surgery with an antibacterial soap. Wear comfortable, loose fitting clothing. Children are encouraged to wear pajamas. - Jewelry must be removed prior to entering the operating room. Rings and piercings that are not removed may be cut off. - The hospital will not accept responsibility for valuables. - Please leave all valuables, including medications, at home the day of surgery. If you are going home after surgery, a licensed regional tanker truck driver must drive you home. - NO public transportation without another adult. - We recommend that an adult stay with you for 24 hours following discharge. - We also recommend that you do not drive, make important decision, drink alcoholic beverages, or take any drugs that were not prescribed by your health care provider for at least 24 hours after your discharge time. For Pediatric surgeries, we recommend two adults accompany the child home (only one inside the building at this time). Follow any additional instructions given to you from your surgeon. HIBICLENS SHOWER AM OF SURGERY If you or anyone in your household have experienced Covid symptoms in the past week, please notify your surgeon or the nurse liaison at the phone number below for possible testing. Telephone instructions given to ____PT and asked if any additional questions and then verbalized understanding. Patient advised to call surgeon office or pre surgery nurse liaison [phone] if any additional questions.
--- NOTE | 2022-04-23 07:49 | WPDANESEPPF ---
Anes - Initial Pre Proc Eval Procedure: Operation Date: 04/23/22 12:00 Proposed Procedures p Left Inguinal Hernia Repair - Roverto Goyal MD Date/Time: 04/23/22 07:49 Surgeon: Roverto Goyal MD Pre Op Diagnosis: left inguinal hernia Patient Data Age: 71 Gender: M Height: 1.7 m Weight: 84 kg Allergies Allergy/AdvReac Type Severity Reaction Status Date / Time morphine Allergy Unknown DIFFICULTY Verified 04/23/22 10:49 BREATHING/CAUSED LUNG COLLAPSE tamsulosin AdvReac Mild INCREASED Verified 04/23/22 10:49 VERTIGO/ED/LIGHT HEADED oxycodone Allergy Severe Difficulty Uncoded 04/23/22 10:49 Breathing/lung collapsed Home Medications Medication Instructions Recorded Confirmed Type ibuprofen 200 mg tablet (Advil) 400 mg PO Q6H PRN Pain 04/18/20 04/23/22 History finasteride 5 mg tablet 5 mg PO DAILY #90 tabs 11/21/21 04/23/22 Rx losartan 100 mg tablet 100 mg PO HS #90 tabs 02/09/22 04/23/22 Rx metformin 500 mg tablet,extended 500 mg PO DAILY #90 tabs 02/09/22 04/23/22 Rx release 24 hr atorvastatin 40 mg tablet 40 mg PO DAILY #90 tabs 02/23/22 04/23/22 Rx glimepiride 1 mg tablet See Rx Instructions PO BID #135 03/05/22 04/23/22 Rx tabs sildenafil (pulm.hypertension) 20 100 mg PO DAILY PRN sexual 03/24/22 04/20/22 Rx mg tablet activity #90 tabs pantoprazole 40 mg tablet,delayed 40 mg PO HS #90 tabs 04/08/22 04/23/22 Rx release baclofen 10 mg tablet 10 mg TID PRN Muscle Spasm 04/20/22 04/23/22 History Patient hx anesthesia problems: none Family hx anesthesia problems: none Results Review: All pre-operative results and documents have been reviewed as part of the pre-operative evaluation. [facility] Past Medical History Medical History BMI 27.0-27.9,adult Chronic GERD Diabetes Hemoglobin A1c less than 7.0% last noted to be 6.0 by pt HTN (hypertension) Hyperlipidemia Osteoarthritis Osteoarthritis of hips, bilateral Surgical History Surgical History Arthritis of right acromioclavicular joint DCE with acromioplasty October 10, 2021 H/O elbow surgery right elbow, 1999, Dr. Garcia H/O shoulder surgery bilateral, 2009 & 2014 Dr Dave History of neck surgery 1999 - neck fusion by Dr. Emerson History of umbilical hernia repair Family History Family History (Updated 04/07/22 @ 08:49 by Laure Balbuena MA) Father Family history of lung cancer Acute myocardial infarction Heart disease Mother Mesothelioma Other Diabetes mellitus Social History Social History Smoking packs per day: 1.5 Smoking cigarettes per day: 30.0 Years smoked: 25 Smoking pack-years: 37.50 Smoking status: Former smoker Tobacco type: cigarettes Second hand tobacco smoke exposure: No Smoking end date: 03/06/90 Alcohol intake: current Drinks per week: 3 Substance use: never Substance use type: does not use Living arrangements: with family Additional living arrangements comments: AND CHILDREN Gender identity (if verbalized by the patient): Male Sexual Orientation (if Verbalized by the Patient): Straight or Heterosexual Spiritual care concerns: No Agree to blood products: Yes Anes - Eval Final PreProcedure Day of Procedure 04/23/22 07:49 Patient weight: obese Heart: regular rate and rhythm Lungs: clear to auscultation Airway: Mallampati scale class 1 Neurological: alert and oriented Last oral intake: >/= 8 hours ASA classification: III Emergent: no Anesthetic plan: proceed Anesthesia type and monitoring: general GIVS and standard monitoring Results Review: All pre-operative results and documents have been reviewed as part of the pre-operative evaluation. Informed Consent: The patient's anesthetic plan and its attendant risks and benefits were discus
[2022-04-23 10:29] VITALS: BP 142/84; PULSE 70; RESP 20; TEMP 36.4; O2SAT 100
[2022-04-23] MEDS: ACETAMINOPHEN 500 MG TABLET 1000 MG PO (10:56)
[2022-04-23] MEDS: LACTATED RINGERS 1,000 ML 30 ML IV CONT ×2 (11:05→14:08)
[2022-04-23] MEDS: KETOROLAC 15 MG/ML VIAL (*BKC) IV PUSH (11:09)
[2022-04-23 11:14] LABS: Glucose Point of Care 92 mg/dl (65-105)
--- NOTE | 2022-04-23 12:03 | WPDHPUPDATE1 ---
History and Physical Update Update Date/Time: 04/23/22 12:03 History and Physical has been reviewed, including an updated exam of the patient. There are NO changes in the patient's condition. Risks, benefits, and alternatives have been discussed and questions answered. Patient agrees to proceed with procedure.
[2022-04-23] MEDS: ceFAZolin 2 GM/D5W 50 ML 2 GM/50 ML BAG IVPB (12:12)
[2022-04-23] MEDS: BUPIVACAINE/EPINEPHRINE 0.25% 50 ML VIAL INFILTRATE (12:34)
[2022-04-23 13:40] VITALS: BP 156/75; PULSE 81; RESP 18; O2SAT 100
--- NOTE | 2022-04-23 13:49 | W.PM.PROC2 ---
Procedure Note - Detailed Date of Procedure 04/23/22 Pre-op Diagnosis left inguinal hernia Post-op Diagnosis Same Procedure Performed Repair left inguinal hernia with large PerFix Light plug and patch Surgeon Roverto Goyal MD Project Developer CHRISTEL Bosch Anesthesia General (G IV S), Local (0.25% bupivacaine with epinephrine) and Other (Xaracoll) Indications Patient was having left groin and inguinal pain. He had a CT scan which showed a fat containing left inguinal hernia. Examined my office also showed a left inguinal hernia. He is taken to surgery now for left inguinal hernia repair Findings Patient had an indirect left inguinal hernia. Description of Procedure Patient was taken to surgery and anesthesia was introduced. The left groin and genitalia were prepped and draped. The proposed incision was marked on the skin. Local was infiltrated into the skin and the deeper subcutaneous tissues. Incision was made dissection was carried down through the subcutaneous. Crossing veins were cauterized and divided. Additional local was infiltrated. We continued our dissection through the subcutaneous and to the external oblique aponeurosis. The aponeurosis was exposed as was the external ring. We infiltrated additional local deep to the aponeurosis in the area of the inguinal canal and the spermatic cord. The aponeurosis was then opened laterally and extended medially through the external ring. Care was taken to preserve the ilioinguinal nerve which was left attached to the spermatic cord throughout the surgery. I then dissected the leaves of the aponeurosis free from the underlying inguinal canal contents. The cord was then mobilized medially on a Patricia drain. The cord was further mobilized back to the internal ring. I carefully looked for any direct hernia. None was found. I then dissected in the anteromedial aspect of the spermatic cord. Some fatty tissue was found and was dissected. It was excised and discarded. Hernia sac was found and dissected back to a high dissection. The sac was dunked into the retroperitoneum. The large PerFix Light plug was then placed in the defect. The edges were sutured to the transversalis fascia with interrupted 3-0 Vicryl suture. The defect was then partially closed with another 3-0 Vicryl suture. We then cut the patch to the appropriate size. The patch was placed over the inguinal canal floor with the lateral leaves passing beyond the cord. The 1st piece of Xaracoll was placed over the patch. The spermatic cord and ilioinguinal nerve were then laid over the Xaracoll. The external oblique aponeurosis was then closed with interrupted 3-0 Vicryl suture. The 2nd piece of Xaracoll was placed over the external oblique. Anastasiya's fascia was closed with interrupted 3-0 Vicryl suture. The last piece of Xaracoll was placed in the subcutaneous. The skin was loosely approximated with subcuticular 4-0 Vicryl interrupted suture. Finally the skin was closed with a running 4-0 Monocryl skin suture. The wound was dressed with Exofin surgical adhesive. The patient was awakened and taken to recovery in good condition. Sponge and needle counts were correct x2. Implants PerFix Light plug and patch, large; Xaracoll Estimated Blood Loss -5 Drains No Packing No Pathology None sent Complications No immediate complications Condition Stable Disposition Same day [facility] Billing Surgery - Charge Forward: Surgery Billing (Left inguinal hernia repair)
[2022-04-23 14:10] VITALS: BP 103/60; PULSE 72; RESP 18
[2022-04-23 14:24] LABS: Glucose Point of Care 113 mg/dl (65-105)
[2022-04-23 14:40] VITALS: BP 126/85; PULSE 69; RESP 16
== END 2022-04-23 15:06 | disposition home or self-care (01) ==
PROVIDERS: PCP Family Medicine Adolescent Medicine; Visit Provider Surgery
PROC: (CPT 49505; principal; 2022-04-23 12:00)
DX: K40.90 Unilateral inguinal hernia, without obstruction or gangrene, not specified as recurrent (principal); I10 Essential (primary) hypertension; E11.9 Type 2 diabetes mellitus without complications; E78.2 Mixed hyperlipidemia; K21.9 Gastro-esophageal reflux disease without esophagitis; Z79.84 Long term (current) use of oral hypoglycemic drugs; Z87.891 Personal history of nicotine dependence; E66.9 Obesity, unspecified; Z68.27 Body mass index [BMI] 27.0-27.9, adult
CPT/HCPCS: 49505; 82948; A9270; C1781; J0690; J1170; J1885; J2250; J2704; J3010; J7120

== ENCOUNTER → 2023-02-09 11:41 | Outpatient (CLI) | payer OTHER, SELFPAY ==
--- NOTE | ~2023-02-09 | XR_ITS ---
Cervical Spine: AP, lateral, open-mouth views Clinical History: Pain Findings: There is straightening of normal cervical lordosis. There are extensive anterior osteophyte formation extending from the C2-C3 disc space through the C6-C7 disc space. Probable fusion across t he C5-C6 disc space. There is questionable partial fusion across the C4-C5 disc space. Pre-vertebral soft tissues are unremarkable. Impression: No acute fracture or subluxation. Extensive flowing anterior osteophytes through most of the cervical spine. Findings presumably repres ent extensive DISH. Correlate with procedural history. Suspected fusion across the C5-C6 and C6-C7 disc spaces. Reviewed, dictated and finalized at location M. Impression: No acute fracture or subluxation. Extensive flowing anterior osteophytes through most of the cervical spine. Find ings presumably represent extensive DISH. Correlate with procedural history. Suspected fusion across the C5-C6 and C6-C7 disc spaces.
== END ==
PROVIDERS: PCP Family Medicine; Visit Provider Nurse Practitioner Family
DX: M25.78 Osteophyte, vertebrae (principal); R51.9 Headache, unspecified; G89.29 Other chronic pain
CPT/HCPCS: 72040

== ENCOUNTER 2023-03-04 13:15 | Outpatient (RCR) | payer OTHER, SELFPAY ==
--- NOTE | 2023-02-23 09:57 | PTOPEVAL1 ---
Assessment and note entered by Cathi Baires, PT Evaluation Information Assessment Status Evaluation Diagnosis neck pain, headaches Onset about 1 year ago Subjective Information chronic pain in neck and shoulders, gradually worse, no injury or trauma; had cervical xrays: extensive anterior osteophyte formation C 2-3 through to C 6-7; retired, chemical maker; is indep with all self care and home tasks; play golf, active lifestyle- limited by pain, not able to do as much previous therapy here for same---helped limber neck; is not doing any of the exercises for his neck; did have therapy another facility for vertigo, still have little dizziness; have not been to ortho dr or neurologist since last had shoulder surgery; Reported Pain Level Pain Score Self Report Additional Pain Score Comments pain range 1-8/10 in past week; base of neck and back of head, to top of head> forehead; headaches occur 5x/week, duration 20-30 min, ease with advil; sleep is usually OK, sometimes wake up; increase pain: pain comes on no matter what; sit in recliner 30 min to watch TV--inconsistent time before have to change positions decrease pain: over the counter meds, move around do not use heat/ice; instruct on PRN use; position change frequent; Assessment PT Clinical Summary Dante has the diagnosis of cervical pain and headaches. He has a history of chronic neck pain, which has recently increased with headaches; R and L shoulder surgery and cervical fusion in ~ 1999; also has HTN and diabetes. Self assessment Neck Disability Index score of 38% limitation. He reports decreased sitting tolerance and headaches 5x/wk. His cervical xray reports extensive anterior osteophyte formation C 2-3 through C 6-7. With the evaluation: he has poor standing position of neck, head and shoulders--forward head with side bend and rotation to R; rounded shoulders and thoracic kyphosis; limited cervical rotation to L> R
--- NOTE | 2023-03-22 11:25 | PTOPDC ---
Assessment and note entered by Cathi Baires, PT Evaluation Information Assessment Status Discharge - Pt Not Present Diagnosis neck pain, headaches Onset about 1 year ago Assessment PT Clinical Summary Mr. Whiteside has received 4 PT sessions, from February 23 to . He has not returned for any further treatment, therefore, he will be discharged from PT at this time. The goals were not addressed. Plan of Care PT Services Indicated No
== END 2023-03-23 08:31 | disposition home or self-care (01) ==
LOC: ANHPT 13:15
PROVIDERS: PCP Family Medicine; Visit Provider Nurse Practitioner Family
DX: M54.2 Cervicalgia (principal); R51.9 Headache, unspecified; G89.29 Other chronic pain
CPT/HCPCS: 97110; 97140; 97161

== ENCOUNTER 2023-08-18 14:30 | Outpatient (RCR) | payer OTHER, SELFPAY ==
--- NOTE | 2023-06-25 11:43 | OPREHPOC ---
Outpatient Therapy Plan of Care This is a Multidisciplinary Plan of Care that may contain components documented by all disciplines (PT, OT, and ST.) PT Problem 1 PT Problem #1 Knowledge Deficit PT Goal 1 Goal 1* indep with HEP 2* pt maintain good position of GH joint with exercises PT Problem 2 PT Problem #2 Pain PT Goal 1 Goal 1* pt report pain at worst of 3/10 2* pt report no awakening from sleep due to shoulder pain PT Problem 3 PT Problem #3 Impaired Flexibility PT Goal 1 Goal increase flexibility of R pec/anterior GH joint to improve posture and position 1* supine position, distance from mid GH joint to mat 3 2* standing active shoulder flexion 135' 3* standing active shoulder abduction 135' PT Problem 4 PT Problem #4 Impaired Strength PT Goal 1 Goal improve scapular-thoracic strength, to improve position of GH joint 1* pt perform 20 reps of prone scapular retraction with arms 90' and overhead
--- NOTE | 2023-06-25 11:44 | PTOPEVAL1 ---
Assessment and note entered by Cathi Baires, PT Evaluation Information Assessment Status Evaluation Diagnosis R shoulder bursitis Onset over 1 year Subjective Information gradual increase in shoulder pain; saw ortho dr and stated no tears, bursitis; x rays--nothing noted per pt; had shoulder injection about 6 months ago, helped a little; ACTIVITY: is able to perform all home and self care tasks; retired Reported Pain Level Pain Score Self Report Additional Pain Score Comments pain range in the past week: 0-6/10; hurts deep in the shoulder joint; increase pain: with lifting, using arm, playing 18 holes golf; decrease pain: rest, advil awaken from sleeping about 1x/night due to shoulder pain and have to change position also has neck pain and headaches; Assessment PT Clinical Summary Ray has the diagnosis of R shoulder bursitis. His history includes R shoulder arthroscopy with excision of clavicle 8 months ago; R rotator cuff surgery 2009 and L shoulder surgery 2014, cervical fusion 1999. He continues to have neck pain and headaches. He is able to perform all of his usual home, self care tasks and golfing 18 holes, with increased R shoulder pain. With the evaluation, he has poor shoulder and spinal positioning, slight decrease in R shoulder flexion and abduction ROM, good strength of shoulder and pain with palpation over anterior GH joint. Skilled PT services are indicated for modalities to decrease pain, therapeutic exercises to increase scapular-thoracic strength & shoulder joint mobility/decrease tightness pec and improve position of GH joint and education of HEP and posture of shoulder. Plan of Care Interventions Electrical Stimulation,Hot Pack/Cold Pack,Manual Therapy,Patient Education,Therapeutic Activities,Therapeutic Exercise,Ultrasound,Other Other Interventions taping, I[facility] PT Services Indicated Yes Treatment Frequency and 1-2x/wk for 5 weeks Duration Thes
--- NOTE | 2023-06-25 11:44 | PCPTNOTE ---
during the evaluation, pt reported that he will be out of town the week of the Jul 26.
--- NOTE | 2023-08-09 13:40 | PCPTNOTE ---
pt did not show for today's reevaluation appointment. Called him and left voice message about missed appointment.
[2023-08-18 14:40] VITALS: BP_SYST 145
--- NOTE | 2023-08-18 15:23 | PTOPDC ---
Assessment and note entered by Cathi Baires, PT Evaluation Information Assessment Status Discharge Diagnosis R shoulder bursitis Onset over 1 year Subjective Information Ray reports: shoulder is doing good; have not been doing much lately--no golfing or yard work; feel like ready to finish therapy. saw ortho and he said to keep arm lower; have been doing the home exercises; plan to get shoulder shots if needed for pain; Reported Pain Level Pain Score Self Report Additional Pain Score Comments pain range 0-4/10; increase pain: more activity, golfing, doint alot decrease pain: advil, rest is able to sleep through the night without awakening due to pain; Assessment PT Clinical Summary Randolph has received a total of 6 PT sessions. Compared to the initial evaluation: pain has decreased at the worst rating from 6 to 4/10; is able to sleep through the night without awakening due to pain; slight increase in active R shoulder ROM of flexion and abduction, but it is less than available ROM in supine position; continues to have rounded and forward shoulder joint positioning. Education completed for HEP and posture. The goals were partially met. Discharge PT services. Plan of Care PT Services Indicated No
== END 2023-08-19 08:16 | disposition home or self-care (01) ==
LOC: ANHPT 14:30
PROVIDERS: PCP Family Medicine; Visit Provider Orthopaedic Surgery
DX: M75.51 Bursitis of right shoulder (principal)
CPT/HCPCS: 97110; 97112; 97140; 97161; 97530; 99199

== ENCOUNTER 2023-10-27 00:35 | Day surgery (SDC) | payer OTHER, SELFPAY ==
[2023-09-28 16:03] VITALS: BMI 27.4
--- NOTE | 2023-10-25 09:02 | SUR.PREOP ---
Patient called regarding upcoming procedure. Reviewed preop instructions, appointment times, and procedure prep.
--- NOTE | 2023-10-26 18:13 | PM.HPGS ---
History of Present Illness History of Present Illness Consent: Risks, benefits, and alternatives have been discussed and questions answered. Patient agrees to proceed with procedure. Chief complaint: neoplasm screening Narrative: Faizan Whiteside is a 73 year old male Referred for colon cancer screening. Review of Systems Review of Systems: All systems reviewed & are unremarkable except as noted in HPI and below PMFSH Past Medical History Medical History Anemia BMI 27.0-27.9,adult 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,adult Cervicalgia Chronic GERD Chronic headaches Diabetes Hemoglobin A1c less than 7.0% last noted to be 6.0 by pt HTN (hypertension) Hyperlipidemia shelter use of drug Migraine Osteoarthritis Osteoarthritis of hips, bilateral Screening for colon cancer URI (upper respiratory infection) Surgical History Surgical History Arthritis of right acromioclavicular joint DCE with acromioplasty October 10, 2021 H/O elbow surgery right elbow, 1999, Dr. Garcia H/O shoulder surgery bilateral, 2009 & 2014 Dr Dave History of left inguinal hernia repair (04/2022) History of neck surgery 1999 - neck fusion by Dr. Emerson History of umbilical hernia repair Family History Family History Father Family history of lung cancer Acute myocardial infarction Heart disease Mother Mesothelioma Other Diabetes mellitus Social History Social History Smoking packs per day: 1.5 Smoking cigarettes per day: 30.0 Years smoked: 20 Smoking pack-years: 30.00 Smoking status: Former smoker Tobacco type: cigarettes Second hand tobacco smoke exposure: No Smoking end date: 03/06/90 Alcohol intake: current Drinks per week: 3 Substance use: never Substance use type: does not use Lack of Transportation: No Lack of Food: Never True Current Housing: I Have Housing Concerned About Future Housing: No Difficulty Paying Gas/Electric Bills: No Difficulty Paying for Meds: No Currently Unemployed: No Education: High School Diploma/GED Difficulty w/ Childcare or Family Care: No Living arrangements: other Additional living arrangements comments: with sp Occupation/Education: retired Gender identity (if verbalized by the patient): Male Sexual Orientation (if Verbalized by the Patient): Straight or Heterosexual Spiritual care concerns: No Agree to blood products: Yes Meds Home Medications and Allergies Home Medications Medication Instructions Recorded Confirmed Type ibuprofen 200 mg tablet (Advil) 400 mg PO Q6H PRN Pain 04/18/20 10/27/23 History metformin 500 mg tablet,extended 1,000 mg PO DAILY #180 tabs 10/29/22 10/27/23 Rx release 24 hr cyclobenzaprine 10 mg tablet 5 - 10 mg PO BID PRN muscle spasm 11/16/22 10/27/23 Rx #60 tabs finasteride 5 mg tablet 5 mg PO DAILY #90 tabs 05/11/23 10/27/23 Rx atorvastatin 40 mg tablet 40 mg PO DAILY #90 tabs 05/25/23 10/27/23 Rx losartan 100 mg tablet 100 mg PO HS #90 tabs 06/09/23 10/27/23 Rx pantoprazole 40 mg tablet,delayed 40 mg PO HS #90 tabs 07/05/23 10/27/23 Rx release tadalafil 5 mg tablet (Cialis) 5 mg PO DAILY PRN Sexual Activity 09/10/23 10/27/23 History Allergies Allergy/AdvReac Type Severity Reaction Status Date / Time morphine Allergy Unknown DIFFICULTY Verified 10/27/23 07:29 BREATHING/CAUSED LUNG COLLAPSE tamsulosin AdvReac Mild INCREASED Verified 10/27/23 07:29 VERTIGO/ED/LIGHT HEADED oxycodone Allergy Severe Difficulty Uncoded 10/27/23 07:29 Breathing/lung collapsed Exam Const: General: alert Orientation/consciousness: patient oriented x3 Resp: Auscultation: clear to auscultation bilaterally Cardio: Rhythm: regular rhythm GI: GI Palp: Yes Soft to pa
[2023-10-27 07:20] VITALS: BP 126/74; PULSE 91; RESP 16; TEMP 36.7; O2SAT 100; BMI 26.3
[2023-10-27] MEDS: LACTATED RINGERS 1,000 ML 150 ML IV CONT (07:43)
[2023-10-27 07:45] LABS: Glucose Point of Care 165 mg/dl (65-105)
--- NOTE | 2023-10-27 08:11 | WPDANESEPPF ---
Anes - Initial Pre Proc Eval Procedure: Operation Date: 10/27/23 08:30 Proposed Procedures p Screening Colonoscopy - Jairon Bruner MD Date/Time: 10/27/23 08:11 Surgeon: Jairon Bruner MD Pre Op Diagnosis: neoplasm screening Patient Data Age: 73 Gender: M Height: 1.73 m Weight: 78.5 kg Last Vital Signs Temp 98.1 F 10/27/23 07:20 Pulse 91 10/27/23 07:20 Resp 16 10/27/23 07:20 BP 126/74 10/27/23 07:20 Pulse Ox 100 10/27/23 07:20 O2 Del Method Room Air 10/27/23 07:20 Allergies Allergy/AdvReac Type Severity Reaction Status Date / Time morphine Allergy Unknown DIFFICULTY Verified 10/27/23 07:29 BREATHING/CAUSED LUNG COLLAPSE tamsulosin AdvReac Mild INCREASED Verified 10/27/23 07:29 VERTIGO/ED/LIGHT HEADED oxycodone Allergy Severe Difficulty Uncoded 10/27/23 07:29 Breathing/lung collapsed Home Medications Medication Instructions Recorded Confirmed Type ibuprofen 200 mg tablet (Advil) 400 mg PO Q6H PRN Pain 04/18/20 10/27/23 History metformin 500 mg tablet,extended 1,000 mg PO DAILY #180 tabs 10/29/22 10/27/23 Rx release 24 hr cyclobenzaprine 10 mg tablet 5 - 10 mg PO BID PRN muscle spasm 11/16/22 10/27/23 Rx #60 tabs finasteride 5 mg tablet 5 mg PO DAILY #90 tabs 05/11/23 10/27/23 Rx atorvastatin 40 mg tablet 40 mg PO DAILY #90 tabs 05/25/23 10/27/23 Rx losartan 100 mg tablet 100 mg PO HS #90 tabs 06/09/23 10/27/23 Rx pantoprazole 40 mg tablet,delayed 40 mg PO HS #90 tabs 07/05/23 10/27/23 Rx release tadalafil 5 mg tablet (Cialis) 5 mg PO DAILY PRN Sexual Activity 09/10/23 10/27/23 History Laboratory Tests 10/27/23 07:37 POC Capillary Glucose 165 H mg/dl (65-105) Patient hx anesthesia problems: none Family hx anesthesia problems: none Results Review: All pre-operative results and documents have been reviewed as part of the pre-operative evaluation. [facility], [facility] Past Medical History Medical History Anemia BMI 27.0-27.9,adult 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,adult Cervicalgia Chronic GERD Chronic headaches Diabetes Hemoglobin A1c less than 7.0% last noted to be 6.0 by pt HTN (hypertension) Hyperlipidemia retirement use of drug Migraine Osteoarthritis Osteoarthritis of hips, bilateral Screening for colon cancer URI (upper respiratory infection) Surgical History Surgical History Arthritis of right acromioclavicular joint DCE with acromioplasty October 10, 2021 H/O elbow surgery right elbow, 1999, Dr. Garcia H/O shoulder surgery bilateral, 2009 & 2014 Dr Dave History of left inguinal hernia repair (04/2022) History of neck surgery 1999 - neck fusion by Dr. Emerson History of umbilical hernia repair Family History Family History Father Family history of lung cancer Acute myocardial infarction Heart disease Mother Mesothelioma Other Diabetes mellitus Social History Social History Smoking packs per day: 1.5 Smoking cigarettes per day: 30.0 Years smoked: 20 Smoking pack-years: 30.00 Smoking status: Former smoker Tobacco type: cigarettes Second hand tobacco smoke exposure: No Smoking end date: 03/06/90 Alcohol intake: current Drinks per week: 3 Substance use: never Substance use type: does not use Lack of Transportation: No Lack of Food: Never True Current Housing: I Have Housing Concerned About Future Housing: No Difficulty Paying Gas/Electric Bills: No Difficulty Paying for Meds: No Currently Unemployed: No Education: High School Diploma/GED Difficulty w/ Childcare or Family Care: No Living arrangements: other Additional living arrangements comments: with sp Occupation/Education: retired Gender identity (if verbalized by the patient): Shante
[2023-10-27 08:55] VITALS: BP 108/67; PULSE 91; RESP 23; O2SAT 98
[2023-10-27 09:05] VITALS: BP 109/70; PULSE 77; RESP 17; O2SAT 100
[2023-10-27 09:15] VITALS: BP 133/78; PULSE 79; RESP 21; O2SAT 100
== END 2023-10-27 09:22 | disposition home or self-care (01) ==
PROVIDERS: PCP Nurse Practitioner Family; Visit Provider Internal Medicine Gastroenterology
PROC: 0DJD8ZZ Inspection of Lower Intestinal Tract, Via Natural or Artificial Opening Endoscopic (ICD-10-PCS; CPT 45378; principal; 2023-10-27 08:30)
DX: Z12.11 Encounter for screening for malignant neoplasm of colon (principal); K62.1 Rectal polyp; K64.8 Other hemorrhoids; E11.9 Type 2 diabetes mellitus without complications; I10 Essential (primary) hypertension; Z87.891 Personal history of nicotine dependence
CPT/HCPCS: 45385; 82948; J2704; J7120

== ENCOUNTER 2024-07-14 10:19 | Outpatient (CLI) | payer OTHER, SELFPAY ==
--- NOTE | 2024-08-07 09:28 | P.SLEEP_ITS ---
Sleep Study Date of Study: 07/14/24 Ordering Provider: Ilsa Gonsalves NP Interpreting Physician: Lacey Murphy MD Sleep Study Type: Split Polysomnogram Height: 1.73 m Weight: 77.564 kg Body Mass Index: 25.9 Neck Circumference (inches): 16 [place]: 5 Reason for Sleep Study Hypersomnia Sleep History Alysia is a 74-year-old man who has been told he has witnessed apneas, per his . Sometimes he wakes himself gasping. He has postnasal drainage mainly at night when he is supine in bed. Recently had his been thicker and was difficult to get out. He occasionally coughs up sputum. He uses Flonase in the morning. He has GERD treated with a PPI and this controls his symptoms. His memory is a little worse than usual. His primary care provider talked him about a sleep study and he agreed. His sleep issues have been going on several years overall. He occasionally awakens from sleep feeling short of breath. He rarely awakens at night with heartburn, belching or coughing. He occasionally snores loudly enough that others complain. He rarely has difficulty sleeping with a cold. He occasionally wakes up gasping for breath at night. He occasionally has breathing problems at night observed by others. He occasionally sweats excessively at night however never notices his heart pounding or beating irregularly night. He rarely falls asleep during the day, rarely falls asleep involuntarily, never falls asleep while driving. He does not have loss of muscle tone with strong emotion. He does not have daytime difficulties due to excessive sleepiness. He does not feel paralyzed on waking or falling asleep. He occasionally has vivid dreamlike scenes upon awakening or falling asleep. He never feels afraid to go to sleep. He rarely has nightmares. He frequently remembers his dreams. He rarely has racing thoughts. He occasionally feels sad, depressed, or anxious. He occasionally notices parts of his body jerking. He occasionally kicks at night. He does not have crawling or aching feelings in his legs nor any kind of leg pain at night. He does not have morning jaw pain. He rarely grinds his teeth during sleep. He occasionally is bothered by pain during the day, occasionally awakened by pain at night. He occasionally wakes up feeling stiff in the morning, occasionally awakens with sore or achy muscles, occasionally awakens with pain in the neck and spine. He has fatigue and memory problems. His normal bedtime is 9:00 p.m., falling asleep within 15-20 minutes, typically waking between 3 and 4 times during the night to urinate or let the dog outside. He is able to return to sleep within 10-15 minutes. These awakenings occur soon after falling asleep. His normal wake time is between 6:00 a.m. and 6:30 a.m.. He estimates getting between 7 hours and 8 hours of sleep at night. He keeps the same schedule on weekends. His sleep problem does not interfere with his social life. He takes naps during the afternoon or evening. A short nap lasting 10-15 minutes may be refreshing. Most of the time he feels adequate upon waking. He feels better in the morning compared to other times of day. Habits: Tobacco: Former smoker, quit 35 years ago Caffeine: once daily Alcohol: 1 serving per week Recreational substances: none PMFSH Past Medical History Medical History Anemia BMI 25.0-25.9,adult BMI 27.0-27.9,adult 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,adult Callus between toes Cervicalgia Chest pain Chronic GERD Chronic headaches Decreased exercise tolerance Diabetes Globus sensation Hemoglobin A1c less than 7.0% last noted to be 6.0 by pt Hemorrhoids, internal HTN (hypertension) Hyperlipidemia Hypersomnia exterminator helper use of drug Migraine Osteoarthritis Osteoarthritis of hips, bilateral Otitis externa of right ear Plantar fascial fibromatosis of right foot Postnasal drip Screening for colon cancer Seasonal allergies Snoring URI (upper respiratory infection) Urinary frequency Urinary hesitancy Weight loss Witnessed episode of apnea Surgical History Surgical History Arthritis of right acromioclavicular joint DCE with acromioplasty October 10, 2021 H/O elbow surgery right elbow, 1999, Dr. Garcia H/O shoulder surgery bilateral, 2009 & 2014 Dr Dave History of left inguinal hernia repair (04/2022) History of neck surgery 1999 - neck fusion by Dr. Idania History of umbilical hernia repair Family History Family History Father Family history of lung cancer Acute myocardial infarction Heart disease Mother Mesothelioma Other Diabetes mellitus Social History Social History Smoking packs per day: 1.5 Smoking cigarettes per day: 30.0 Years smoked: 20 Smoking pack-years: 30.00 Smoking status: Former smoker Tobacco type: cigarettes Second hand tobacco smoke exposure: No Smoking end date: 03/06/90 Alcohol intake: current Drinks per week: 3 Substance use: never Substance use type: does not use Lack of Transportation: No Lack of Food: Never True Current Housing: I Have Housing Concerned About Future Housing: No Difficulty Paying Gas/Electric Bills: No Difficulty Paying for Meds: No Currently Unemployed: No Education: High School Diploma/GED Difficulty w/ Childcare or Family Care: No Living arrangements: other Additional living arrangements comments: with sp Occupation/Education: retired Gender identity (if verbalized by the patient): Male Sexual Orientation (if Verbalized by the Patient): Straight or Heterosexual Spiritual care concerns: No Agree to blood products: Yes Medications Home Medications Medication Instructions Recorded Confirmed Type ibuprofen 200 mg tablet (Advil) 400 mg PO Q6H PRN Pain 04/18/20 07/11/24 History tadalafil 5 mg tablet (Cialis) 5 mg PO DAILY PRN Sexual Activity 09/10/23 07/11/24 History metformin 500 mg tablet,extended 1,000 mg PO DAILY #180 tabs 11/01/23 07/11/24 Rx release 24 hr dapagliflozin propanediol 5 mg 5 mg PO DAILY #30 tabs 12/28/23 07/11/24 Rx tablet (Farxiga) fluticasone propionate 50 1 spray intranasal BID #16 grams 01/24/24 07/11/24 Rx mcg/actuation nasal spray,suspension (Flonase Allergy Relief) hydrocortisone 2.5 % topical cream 1 applic RECTAL QHS PRN 02/17/24 07/11/24 Rx with perineal applicator hemorrhoids #30 grams (Anusol-HC) losartan 100 mg tablet 100 mg PO HS #90 tabs 03/02/24 07/11/24 Rx finasteride 5 mg tablet 5 mg PO DAILY #90 tabs 05/04/24 07/11/24 Rx atorvastatin 40 mg tablet 40 mg PO DAILY #90 tabs 05/18/24 07/11/24 Rx pantoprazole 40 mg tablet,delayed 40 mg PO HS #90 tabs 06/27/24 07/11/24 Rx release sulfamethoxazole 800 1 tablet PO Q12H #28 tabs 07/04/24 07/11/24 Rx mg-trimethoprim 160 mg tablet (Bactrim DS) Sleep Procedure A split night polysomnogram using the [employer] multi-channel system recorded the standard physiologic parameters including EEG, EOG, submentalis EMG, anterior tibialis EMG, EKG, body position, nasal and oral airflow using na aure pressure sensor and thermistor. Respiratory parameters of chest and abdominal movements were recorded with Respiratory Inductance Plethysmography belts. Oxygen saturation was recorded by pulse oximetry. Video monitoring was also performed. Sleep stages, periodic limb movements, and EEG arousals were scored in 30 second epochs according to the criteria of the AASM Scoring Manual. The Apnea-Hypopnea Index was calculated using CMS guidelines for definition of hypopnea while scoring respiratory events. He did not take a sleep aid at the beginning of the study. After the baseline portion the patient met criteria for a titration with an AHI of 13 and desaturation to 80%. He began the titration using a [employer] Solo Nasal mask, however did not like it, stating he could not breathe in or out very well. He was switched to a small ResMed AirTouch F20 fullface mask with heated humidity, pressures attempted included CPAP 5 cm, 6 cm for comfort, with the addition of EPR 2 than EPR 3. The patient had significant difficulty tolerating CPAP. He was very uncomfortable. The research instrumentation technician switched him to BiPAP 8/4 for comfort. This was increased to 9/4, than 10/5. At this pressure the patient spent 67.5 minutes in bed, no time awake, 32.5 minutes in non-REM and 35 minutes in REM. The sleep efficiency was 100% and the residual apnea- hypopnea index was 1.8. The minimum saturation was 92%. The research instrumentation technician did attempt other pressures including BiPAP 11/5, BiPAP 12/6, BiPAP 13/7 with the presence of central apneas at all these pressures. A backup rate of 10 was added to bilevel pressures 13/7, 14/8 and 15/9. The best pressure during the study was 10/5 without a backup rate. The patient had REM in the left lateral position. There was no REM at higher pressures and the sleep was much more fragmented during the rest of the night. Sleep Architecture Baseline During the diagnostic portion of the study, the total recording time was 176.9 minutes. The total sleep time was 129.0 minutes. Sleep latency was 8.9 minutes. REM latency was 76.5 minutes. Sleep Efficiency was 72.9%. The patient had 4 awakenings for an awakening index of 1.9. Wake after sleep onset time was 39.0 minutes. The patient spent 15.0 minutes, 11.6% of total sleep time in Stage N1. The patient spent 56.5 minutes, 43.8% in Stage N2. The patient spent 22.5 minutes, 17.4% in Stage N3. The patient spent 35.0 minutes, 27.1% in Stage REM sleep. Titration At 01:49:19 AM the patient was placed on PAP treatment and was titrated at pressures ranging from 8/4/0* 15/9/10* cm/H20 During the treatment portion of the study, the total recording time was 306.5 minutes. The total sleep time was 211.5 minutes. Sleep latency was 15.0 minutes. REM latency was 76.0 minutes. Sleep Efficiency was 69.0%. Wake after Sleep Onset time was 80.0 minutes. The patient spent 37.0 minutes, 17.5% of total sleep time in Stage N1. The patient spent 134.5 minutes, 63.6% in Stage N2. The patient spent no time in Stage N3. The patient spent 40.0 minutes, 18.9% in Stage REM. Respiratory Analysis Baseline During the diagnostic portion of the study, the patient had 27 hypopneas, 1 obstructive apnea, no mixed or central apneas for an overall Apnea Hypopnea Inde x of 13.0 events per hour. The REM Apnea Hypopnea Index was 42.9, and all these evetns were in the supine position. The NREM Apnea Hypopnea Index was 1.9. The patient had a Central Apnea Hypopnea Index of 0. There were 3 Respiratory Effort Related Arousals resulting in a RERA index of 1.4 events per hour. The Respiratory Disturbance Index is 14.4 events per hour. There was no evidence of Stanley-Hernandez Respirations. The supine AHI is 23.6. The nonsupine AHI is 2.7.9 Titration During the treatment portion of the study, the patient had 10 hypopneas, 8 obstructive apneas, 12 mixed apneas, and 46 central apneas for an overall Apnea Hypopnea Index of 21.6 events per hour. The REM Apnea Hypopnea Index was 3.0. The NREM Apnea Hypopnea Index was 25.9. The patient had a Central Apnea Hypopnea Index of 13.0. There were 3 Respiratory Effort Related Arousals resulting in a RERA index of 0.9 events per hour. The Respiratory Disturbance Index is 22.7 events per hour. There was no evidence of Stanley-Hernandez Respirations. The supine AHI is 50.4. The nonsupine AHI is 3.7. Arousals Baseline During the diagnostic portion of the study, there were a total of 52 arousals for an arousal index of 24.2. There were 5 respiratory arousals for an index of 2.3. There were 39 periodic limb movement arousals for an index of 18.1. There were 2 isolated limb movement arousals for an index of 0.9. There were 6 spontaneous arousals for an index of 2.8. Titration During the treatment portion of the study, there were a total of 63 arousals for an index of 17.9. There were 38 respiratory arousals for an index of 10.8. There were no periodic limb movement arousals. There were 8 isolated limb movement arousals for an index of 2.3. There were 18 spontaneous arousals for an index of 5.1. Periodic Limb Movements Baseline During the diagnostic portion of the study, the patient had 12 isolated limb movements with an index of 5.6. The patient had 152 periodic limb movements with an index of 70.7. The patient had a total of 164 limb movements with a total limb movement index of 76.3. Titration During the treatment portion of the study, the patient had 19 isolated limb movements with an index of 5.4. The patient had 8 periodic limb movements with an index of 2.3. The patient had a total of 27 limb movements with a total limb movement index of 7.7. Oximetry Data Baseline During the diagnostic portion of the study, the patient had an average oxygen saturation of 96.5% in wake with a minimum oxygen saturation of 94% and a maximum oxygen saturation of 100%. The patient had an average oxygen saturation of 94.7% in sleep with a minimum oxygen saturation of 80% and a maximum oxygen saturation of 98%. The patient had 28 oxygen desaturations resulting in an Oxygen Desaturation Index of 13.0. The patient spent 2 minutes, 1.2% of total sleep time with an oxygen saturation less than 88%. Titration During the treatment portion of the study, the patient had an average oxygen saturation of 96.7% in wake with a minimum oxygen saturation of 83% and a maximum oxygen saturation of 99%. The patient had an average oxygen saturation of 95.8% in sleep with a minimum oxygen saturation of 81% and a maximum oxygen saturation of 99%. The patient had 60 oxygen desaturations resulting in an Oxygen Desaturation Index of 17.0. The patient spent for 2.4 minutes, 0.8% of total sleep time with an oxygen saturation less than 88%. Snoring Profile Snoring was mild during the baseline, eliminated during the titration. Cardiac Profile Baseline During the diagnostic portion of the study, the EKG showed normal sinus rhythm. The average pulse rate was 73 bpm. The minimum pulse rate was 63 bpm, and the maximum pulse rate was 98 bpm. No arrhythmias noted. Titration During the treatment portion of the study, the EKG showed normal sinus rhythm. The average pulse rate was 65.6 bpm. The minimum pulse rate was 56 bpm and the maximum pulse rate was 91 bpm. No arrhythmias noted. EEG Profile EEG was unremarkable, no evidence of seizures. Assessment and Plan Assessment and Plan (1) Obstructive sleep apnea: Code(s): G47.33 - Obstructive sleep apnea (adult) (pediatric) Status: Acute Assessment and Plan: This split night sleep study on 07/14/2024 shows mild overall obstructive sleep apnea, the apnea-hypopnea index is 13, severe during supine REM with an AHI of 42.9, minimum desaturation to 80% with mild snoring successfully treated with BiPAP 10/5 using a small ResMed AirTouch fullface amsk and heated humidity. The residual apnea hypopnea index was 1.8. REM occurred in the left lateral position. Patient did not have supine REM during the treatment portion. The patient should be prescribed this ResMed equipment as well as tubing, filters and reservoir. This should be used with all episodes of sleep. Compliance should be reviewed within 31-90 days of starting therapy for usage greater than 4 hours per night greater than 70% of the nights. The patient should be asked about symptoms such as excessive daytime sleepiness, quality of sleep, decreased nocturia, increased mental functioning such as memory, mood, and concentration. (2) Treatment-emergent central sleep apnea: Code(s): G47.39 - Other sleep apnea Status: Acute Assessment and Plan: The patient had the emergence of central apneas at all bilevel pressures. He was not able to tolerate CPAP whatsoever. At bilevel pressure of 10/5 he spent over an hour and had 1 central apnea. Bilevel 10 or 5 is is optimal pressure without a backup rate. Data The data obtained during this sleep study is adequate for interpretation. Certification This sleep study has been reviewed by a board certified sleep medicine physician.
[2024-08-07 09:58] VITALS: BMI 25.9
== END 2024-07-15 07:42 | disposition home or self-care (01) ==
LOC: ANHCSM 10:23
PROVIDERS: PCP Nurse Practitioner Family; Visit Provider Nurse Practitioner Family
DX: G47.31 Primary central sleep apnea (principal); R06.83 Snoring; G47.10 Hypersomnia, unspecified
CPT/HCPCS: 95811

== ENCOUNTER 2024-08-10 09:54 | Outpatient (CLI) | payer OTHER, SELFPAY ==
--- NOTE | 2024-08-10 10:01 | EST_ITS ---
Patient Info Name: Faizan Whiteside Age: 74 years : 1950 Gender: Male Ht: 68 in Wt: 171 lbs BSA: 1.94 m2 Exam Date: 08/10/2024 10:17 AM Exam Location: [facility] Patient Status: Outpatient Admit Date: 08/10/2024 Staff Ordering Physician: Ilsa Gonsalves NP Attending Provider: Ilsa Gonsalves NP Exercise Technologist: Amrita Alvarenga RDCS Exercise Physician: Thierno Garcia DO Exam Type: CA stress test treadmill Study Info A treadmill exercise stress test was performed. Summary 1. 1. Negative Jhon exercise stress test for ischemic ST changes by ECG criteria. 2. 2. Good functional capacity, achieving 8.9 METs of workload. 3. 3. Appropriate HR response to exercise. 4. 4. Appropriate HR recovery at 1 minute post exercise. 5. 5. No imaging with stress testing. 6. 6. Patient informed of the above results. Protocol: Jhon Stress ECG Details Stage: REST Duration (min): 0 min : 56 sec Speed (mph): 0.0 Grade (%): 0 HR (bpm): 66 SBP (mmHg): 137 DBP (mmHg): 81 METS: --- Stage: REST Duration (min): 5 min : 52 sec Speed (mph): 0.0 Grade (%): 0 HR (bpm): 72 SBP (mmHg): 137 DBP (mmHg): 81 METS: --- Stage: STAGE 1 Duration (min): 1 min : 0 sec Speed (mph): 1.7 Grade (%): 10 HR (bpm): 95 SBP (mmHg): 137 DBP (mmHg): 81 METS: --- Stage: STAGE 1 Duration (min): 2 min : 0 sec Speed (mph): 1.7 Grade (%): 10 HR (bpm): 102 SBP (mmHg): 137 DBP (mmHg): 81 METS: --- Stage: STAGE 1 Duration (min): 3 min : 0 sec Speed (mph): 1.7 Grade (%): 10 HR (bpm): 104 SBP (mmHg): 181 DBP (mmHg): 74 METS: --- Stage: STAGE 2 Duration (min): 1 min : 0 sec Speed (mph): 2.5 Grade (%): 12 HR (bpm): 113 SBP (mmHg): 181 DBP (mmHg): 74 METS: --- Stage: STAGE 2 Duration (min): 2 min : 0 sec Speed (mph): 2.5 Grade (%): 12 HR (bpm): 121 SBP (mmHg): 201 DBP (mmHg): 70 METS: --- Stage: STAGE 2 Duration (min): 3 min : 0 sec Speed (mph): 2.5 Grade (%): 12 HR (bpm): 126 SBP (mmHg): 201 DBP (mmHg): 70 METS: --- Stage: STAGE 3 Duration (min): 1 min : 0 sec Speed (mph): 3.4 Grade (%): 14 HR (bpm): 139 SBP (mmHg): 199 DBP (mmHg): 74 METS: --- Stage: STAGE 3 Duration (min): 1 min : 0 sec Speed (mph): 3.4 Grade (%): 14 HR (bpm): 139 SBP (mmHg): 199 DBP (mmHg): 74 METS: --- Stage: RECOVERY Duration (min): 0 min : 59 sec Speed (mph): 0.0 Grade (%): 0 HR (bpm): 118 SBP (mmHg): 204 DBP (mmHg): 78 METS: --- Stage: RECOVERY Duration (min): 1 min : 59 sec Speed (mph): 0.0 Grade (%): 0 HR (bpm): 94 SBP (mmHg): 204 DBP (mmHg): 78 METS: --- Stage: RECOVERY Duration (min): 2 min : 59 sec Speed (mph): 0.0 Grade (%): 0 HR (bpm): 90 SBP (mmHg): 204 DBP (mmHg): 78 METS: --- Stage: RECOVERY Duration (min): 3 min : 59 sec Speed (mph): 0.0 Grade (%): 0 HR (bpm): 84 SBP (mmHg): 172 DBP (mmHg): 77 METS: --- Stage: RECOVERY Duration (min): 4 min : 59 sec Speed (mph): 0.0 Grade (%): 0 HR (bpm): 82 SBP (mmHg): 163 DBP (mmHg): 77 METS: --- Stage: RECOVERY Duration (min): 5 min : 59 sec Speed (mph): 0.0 Grade (%): 0 HR (bpm): 84 SBP (mmHg): 163 DBP (mmHg): 77 METS: --- Stage: RECOVERY Duration (min): 6 min : 48 sec Speed (mph): 0.0 Grade (%): 0 HR (bpm): 87 SBP (mmHg): 150 DBP (mmHg): 82 METS: --- Rest HR: 72 bpm Peak HR: 139 bpm Rest Sys BP: 137 mmHg Peak Sys BP: 204 mmHg Max Pred HR: 148 bpm % Max Pred HR: 94 % Target HR: 126 bpm Max RPP: 28,356 bpm*mmHg Whatley Score: -4 Termination Reason: Reached target heart rate or workload Cardiac Symptoms: Shortness of breath Max ST Seg Deviation: 2.20 mm Total Time: 7 min : 0 sec Rest Benoit BP: 81 mmHg Peak Benoit BP: 78 mmHg Angina Score: None Total METS: 8.9 Resting ECG Sinus rhythm, IRBBB. Stress ECG No ST changes. Arrhythmias None. Report Signatures
--- NOTE | 2024-08-10 10:19 | ECG_ITS ---
Test Date: 2024-08-10 10:47:45 Measurements Intervals Chloe Rate: 76 P: 37 W[place]: 179 QRS: 78 QRSD: 98 T: 4 QT: 351 QTc: 397 Interpretive Statements SINUS RHYTHM No previous ECG available for comparison Electronically Signed On 08-10-2024 11:39:32 TEACHER TUTOR by Low Pope M.D.
== END 2024-08-10 09:55 | disposition home or self-care (01) ==
PROVIDERS: PCP Nurse Practitioner Family; Visit Provider Nurse Practitioner Family
DX: R68.89 Other general symptoms and signs (principal); R07.9 Chest pain, unspecified; I10 Essential (primary) hypertension; E78.5 Hyperlipidemia, unspecified
CPT/HCPCS: 93005; 93017

== ENCOUNTER 2025-02-16 10:03 | Outpatient (CLI) | payer OTHER, SELFPAY ==
--- NOTE | ~2025-02-16 | MR_ITS ---
MRI of the brain Clinical History: Amnesia Technique: Axial and sagittal T1-weighted images were acquired. These were followed by axial T2-weigh pamela, diffusion weighted, gradient, and FLAIR images. COMPARISON: 07/01/2018 Findings: There is no acute infarct, intracranial hemorrhage, or mass lesion. There are minimal chron ic white matter changes in the periventricular white matter bilaterally. Ventricles and subarachnoid spaces are mildly dilated. Orbits are unremarkable. Paranasal sinuses and mastoid air cells are clear. Major intracranial flow voids are intact. Sagittal midline structures are intact. IMPRESSION: No acute infarct, intracranial hemorrhage, or mass lesion. Minimal chronic white matter changes. Reviewed, dictated and finalized at location .
== END 2025-02-16 10:04 | disposition home or self-care (01) ==
LOC: GOSHIMG 10:03
PROVIDERS: PCP Nurse Practitioner Family; Visit Provider Nurse Practitioner Family
DX: R41.3 Other amnesia (principal)
CPT/HCPCS: 70551

== ENCOUNTER 2025-04-12 08:38 | Outpatient (CLI) | payer OTHER, SELFPAY ==
--- OUTSIDE RECORDS SUMMARY | 2025-04-12 08:43 | XMS_ITS | Clinical Summary ---
Author Organization [facility] Address [address] [place] [address] Care Team Providers Care Senior Linux Unix Engineer Name Role Phone Unavailable Primary Care Provider Unavailabl e Source Comments [facility],non-owned Affiliates and Associated Physician Practices is amultiple site organization consisting of ambulatory clinics and hospital sitesin [place], [place], [place] and [place]. This disclosure is being madepursuant to the Care Everywhere program and may not contain all information available regarding this patient. 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 Gender Identity Not on file Sexual Orientation Not on file Plan of Treatment Health Maintenance Due Date Last Done Comments COLOGUARD (AGES 45-75) - COL ON CA SCREENING 1952 COLON MONITORING 1952 COLONOSCOPY - COLON CA SCREENING 1952 CT COLONOGRAPHY - COLON CA SCREENING 1952 Colorectal Cancer Screening 1952 FIT - COLON CA SCREENING 1952 FLEX SIG - COLON CA SCREENING 1952 LIPID TESTING 1952 MEDICARE AWV 12 MONTHS 1952 HEPATITIS C SCREENING 05/03/1970 DTAP/TDAP/TD VACCINES (1 - Tdap) 1971 PNEUMOCOCCAL VACCINE 50+ (1 of 1 - PCV) 2002 ZOSTER VACCINE (1 of 2) 2002 COVID-19 VACCINE ( - 2023-2 5 season) 2024 DEPRESSION SCREENING 09/06/2024 INFLUENZA VACCINE (#1) 2025 Respiratory Syncytial Virus (RSV) Vaccine Pt: or over 60 yrs (1 - 1-dose 75+ series) 2027 HEPATITIS B VACCINE Aged Out No longe r eligible based on patient's age to complete this topic HIB VACCINE Aged Out No longer eligi ble based on patient's age to complete this topic HPV VACCINE Aged Out No longer eligi ble based on patient's age to complete this topic MENINGOCOCCAL (Group B) VACC INE SHARED DECISION-MAKING Aged Out No longer eligibl e based on patient's age to complete this topic MENINGOCOCCAL GROUPS A/C/Y/W VACCINE Aged Out No longer eligible b ased on patient's age to complete this topic Insurance MEDICARE E[employer]ENCE MEDICARE
--- OUTSIDE RECORDS SUMMARY | 2025-04-12 08:43 | XMS_ITS | Continuity of Care Document ---
Author Organization [facility] Address [address] [place] [address] Phone Care Team Providers Care Preschool Teacher Name Role Phone Uzma NARANJO R Unavailable [...] followup visit Supplemental Report Wrist Brace Tital Marion Tenotomy Lat Or Med Elbow W Tendon [...] Date Provider Providers Copied on Encounter [facility], [address] [place] [address], [id number], tel:[phone] [facility] No Information 2 Aaranson R. [address] [place] [address], [id number], . tel:[phone] [employer] [facility], [address] [place] [address], [id number], tel:[phone] [employer] [facility] No Information 2 Administrati ve Provider. [address] [place] [address], [id number], [place]. tel:[phone] Rating Letter [facility], [address] [place] [address], [id number], [place] tel:[phone] [employer] [facility] No Information 2 Zenobia Castro. [address] [place] [address], [id number], [place]. tel:[phone] [employer] [facility], [address] [place] [address], [id number], tel:[phone] [facility] LATERAL EPICONDYLITIS 2 Zenobia Castro. [address] [place] [address], [place], [id number], [place]. tel:[phone] [facility], [address] [address], [place], [place], [id number], [place] tel:[phone] [facility] LATERAL EPICONDYLITISJ OINT PAIN-UP/ARM 2 Strecker Matthew. [address] [facility] [address], [place], [place], [id number], [place]. tel:[phone] [facility], [address] [address], [place], [place], [id number], [place] tel:[phone] [facility] LATERAL EPICONDYLITIS 2 Strecker Matthew. [address] [facility], [address] [address], [place], [place], [id number], [place]. tel:[phone] [facility], [address] [place] [address], [place], [place], [id number], [place] tel:[phone] [facility] LATERAL EPICONDYLITIS 2 Strecker Matthew. [address] [facility], [address] [place] [address], [place], [place], [id number], [place]. tel:[phone] Office/outpa tient visit,est, [facility], [address] [address], [place], [place], [id number], [place] tel:[phone] [facility] LATERAL EPICONDYLITIS Fe 2 Strecker Matthew. [address] [facility], [address] [place] [address], [place], [place], [id number], [place]. tel:[phone] [facility], [address] [place] [address], [place], [place], [id number], [place] tel:[phone] [facility] No Information 0 2 Administrati ve Provider. [address] [facility], [place] [address], [place], [place], [id number], [place]. tel:[phone] Office/outpa tient visit,est, [facility], [address] [facility] [address], [place], [place], [id number], [place] tel:[phone] [facility] LATERAL EPICONDYLITIS 1 Strecker Matthew. [address] [facility], [place], [place], [id number], [place]. tel:[phone] Office/outpa tient visit,est, [facility], [address] [facility] [address], [place], [place], [id number], [place] tel:[phone] [facility] LATERAL EPICONDYLITIS 1 Strecker Matthew. [address] [facility], [place] [address], [place], [place], [id number], [place]. tel:[phone] Office/outpa tient visit,est, [facility], [address] [facility] [address], [place], [place], [id number], [place] tel:[phone] [facility] JOINT PAIN-UP/ARMLAT ERAL EPICONDYLITIS 1 Strecker Matthew. [address] [facility], [facility] [address], [place], [place], [id number], [place]. tel:[phone] [facility], [address] [facility] [address], [place], [place], [id number], [place] tel:[phone] [facility] No Information 1 Charancker Matthew. [address] [facility], [facility] [address], [place], [place], [id number], [place]. tel:[phone] Office/outpa tient visit,est, [facility], [address] [facility] [address], [place], [place], [id number], [place] tel:[phone] [facility] JOINT PAIN-UP/ARMLAT ERAL EPICONDYLITIS 1 Strecker Matthew. [address] [facility], [place], [place], [id number], [place]. tel:[phone] Office/outpa tient visit,est, [facility], [address] [address], [place], [place], [id number], [place] tel:[phone] [facility] LATERAL EPICONDYLITIS January-2 4-201 1 Zenobia Castro. [address] [facility], [address], [place], [place], [id number], [place]. tel:[phone] [facility], [address] [address], [place], [place], [id number], [place] tel:[phone] [facility] No Information January-0 3-201 1 Zenobia Castro. [address] [facility], [facility] [address], [place], [place], [id number], [place]. tel:[phone] Office consultation , [facility], [address] [address], [place], [place], [id number], [place] tel:[phone] [facility] LATERAL EPICONDYLITIS 0 3-201 1 Zenobia Castro. [address] [facility], [place] [address], [place], [place], [id number], [place]. tel:[phone] Family History Family Member Type Diagnosis Age At Onset No Information Payers Payer name Insurance type Covered libertarian ID Authoriza tion(s) No Information Social History [...]
--- OUTSIDE RECORDS SUMMARY | 2025-04-12 08:43 | XMS_ITS | Clinical Summary ---
Author Organization [facility] [address] Address [address] [place] [address] Care Team Providers Care Locomotive Crane Engineer Name Role Phone Tevin Esparza MD Primary Care Provider [phone] Allergies Active Allergy Reactions Criticality Noted Date Comments Morphine Shortness of breath High 06/09/2023 Medications atorvastatin (LIPITOR) 40 mg tablet Take 1 tablet (40 mg total) by mouth daily Active diclofenac DR (VOLTAREN) 75 mg EC tablet Take 1 tablet (75 mg total) by mouth 2 (two) times a day 3 Active finasteride (PROSCAR) 5 mg tablet Take 1 tablet (5 mg total) by mouth daily Active glimepiride (AMARYL) 1 mg tablet TAKE 1 TABLET BY MOUTH IN THE MORNING AND 1/2 TABLET IN THE EVENING Active metFORMIN XR (GLUCOPHAGE XR) 500 mg 24 hr tablet Take 2 tablets (1,000 mg total) by mouth daily 3 Active losartan (COZAAR) 100 mg tablet Take 1 tablet (100 mg total) by mouth nightly Active pantoprazole DR (PROTONIX) 40 mg EC tablet Take 1 tablet (40 mg total) by mouth nightly Active sildenafiL, pulm.hypertensi on, (REVATIO) 20 mg tablet TAKE 5 TABLETS BY MOUTH DAILY SEXUAL ACTIVITY AND ADMINISTER DOSES AT LEAST 4 TO 6 HOURS APART Active Active Problems No known active problems Social History Tobacco Use Types Packs/Day Years Used Date Smoking Tobacco: Former Cigarettes Smokeless Tobacco: Never Tobacco Cessation:Counseling Given: Not Answered Personal Safety Answer Date Recorded Getting School Help Needed Not on file 09/02 Sex and Gender Information Value Date Recorded Sex Assigned at Not on file 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 Gender Identity Not on file Sexual Orientation Not on file Obstetrics History Last Filed Vital Signs Vital Sign Reading Time Taken Comments Blood Pressure 162/80 06/09/2023 4:40 PM CDT Pulse 80 06/09/2023 4:40 PM CDT Temperature - - Respiratory Rate - - Oxygen Saturation - - Inhaled Oxygen Concentration - - Weight 80.9 kg (178 lb 4.8 oz) 06/09/2023 4:40 P M CDT Height 172 cm (5' 7.72) 06/09/2023 4:40 PM CDT Body Mass Index 27.34 06/09/2023 4:40 PM CDT Plan of Treatment Health Maintenance Due Date Last Done Comments Colon Cancer Screening-Colonoscopy 1952 Depression Screening 1952 Fall Risk Assessment 1952 Hepatitis C Screening 1952 DTaP/Tdap/Td Vaccine (1 - Tdap) 1963 Hepatitis B Screening 1970 Pneumococcal vaccine 65+ (1 of 1 - PCV) 2002 Zoster Vaccine (1 of 2) 2002 Abdominal Aortic Aneurysm (A AA) Screen 2017 Well Visit 65+ 2017 Covid-19 Vaccine (6 - 2023-2 5 season) 2024 06/08/2022, 12/18/2021, 07/22/2021, Additional history exists Influenza Vaccine (#1) 2025 06/29/2022 Insurance [facility] Care Teams Locomotive Crane Engineer Relationship Specialty Start Date End Date Tevin Esparza MD [address] [address] PCP - General Family Medicine 05/25/23
--- OUTSIDE RECORDS SUMMARY | 2025-04-12 08:43 | XMS_ITS | Encounter Summary ---
Author Organization [facility] Address [address] [facility] [place] [address] Care Team Providers Care Incubator Machine Operator Name Role Phone Unavailable Primary Care Provider Unavailabl e Encounter Details Date Type Department Care Team (Late st Contact Info) Description 05/28/2021 Lab Requisition [facility] [address] [place] [address] Bernice Swanson MD [address] [place] [address] Illness, unspecified Social History Tobacco Use Types Packs/Day Years Used Date Smoking Tobacco: Never Assessed Sex and Gender Information Value Date Recorded Sex Assigned at Not on file 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 Gender Identity Not on file Sexual Orientation Not on file documented as of this encounter Plan of Treatment Not on file documented as of this encounter Procedures Procedure Name Priority Date/Time Associated Diagnosis Comments PATH CONSULT ON REFERRED CASE Routine 05/23/2021 3:32 PM CDT Illness, unspecified documented in this encounter Results * PATH CONSULT ON REFERRED CASE (05/23/2021 3:32 PM CDT) Final Diagnosis Prostatic urethra, biopsy (OSC: [id number]; 05/23/2021): - Focal chronic urethritis 05/29/2021 5:00 PM CDT [facility] at 1700 CDT Microscopic Description and Comment The prostatic urethral biopsy has focal edema and mild lymphocytic infiltration in undulating or polypoid mucosa, as well as completely unremarkable areas of prostatic urethra. No urothelial atypia is seen. 05/29/2021 5:00 PM CDT [facility] Clinical History 71 year old man, no clinical given 05/29/2021 5:00 PM CDT [facility] Materials Received One H and E stained prepared slide received from [facility] [id number]. All material will be returned. 05/29/2021 5:00 PM CDT [facility] Disclaimer The performance characteristics of all immunohistochemical and indirect immunofluorescence stains (if any) cited in this report were determined by the Histopathology Laboratory of [facility]. Some of these tests were developed by our own laboratory and have not been cleared or approved by the US Food and Drug Administration. The FDA does not require this test to go through premarket FDA review. These tests are used for clinical purposes. They should not be regarded as investigational or for research. This laboratory is certified under the Clinical Laboratory Improvement Amendments (CLIA) as qualified to perform high complexity clinical laboratory testing. This case has been personally reviewed and interpreted by the attending (teaching) pathologist. 05/29/2021 5:00 PM CDT [facility] Case Report Surgical Pathology Report Case: [id number] Authorizing Provider: Bernice Swanson MD Collected: 05/23/2021 03:32 PM Ordering Location: [facility] Lab Received: 05/28/2021 03:32 PM Pathologist: Ruba Lyons MD Specimen: Slide Consultation 05/29/2021 5:00 PM CDT [facility] Embedded Images 05/29/2021 5:00 PM CDT [facility] Pathology/Cytolo gy SURGICAL PATHOLOGY CONSULTATION AND REPORT ON REFERRED SLIDES PREPARED ELSEWHERE / Unknown 05/23/2021 3:32 PM CDT 05/28/2021 3:32 PM CDT us Bernice Swanson MD LAB - PATHOLOGY/CYTOLOGY ORDERAB LES Final Result [facility] [address] [place] [address], [facility] [phone] documented in this encounter Visit Diagnoses Diagnosis Illness, unspecified documented in this encounter
--- OUTSIDE RECORDS SUMMARY | 2025-04-12 08:43 | XMS_ITS | Encounter Summary ---
Author Organization [facility] Address [address] [facility] [place] [address] Care Team Providers Care Counselling Psychologist Name Role Phone Unavailable Primary Care Provider Unavailabl e Encounter Details Date Type Department Care Team (Late st Contact Info) Description 07/16/2023 Lab Requisition [facility] [address] [facility] [place] [id number] Colette Saavedra PA [address] [place] [id number] Neoplasm of uncertain behavior of skin Social History Tobacco Use Types Packs/Day Years Used Date Smoking Tobacco: Never Assessed Sex and Gender Information Value Date Recorded Sex Assigned at Not on file 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 Gender Identity Not on file Sexual Orientation Not on file documented as of this encounter Plan of Treatment Not on file documented as of this encounter Procedures Procedure Name Priority Date/Time Associated Diagnosis Comments DERMATOPATHOLOGY Routine 07/16/2023 12:0 0 AM DRIVER SUPERVISOR Neoplasm of uncertain behavior of skin documented in this encounter Results * DERMATOPATHOLOGY (07/16/2023 12:00 AM DRIVER SUPERVISOR) Case Report Dermatopathology Report Case: [id number] Authorizing Provider: Colette Saavedra PA Collected: 07/16/2023 12:00 AM Ordering Location: [facility] Lab Received: 07/19/2023 01:14 PM Pathologist: Tatianna Anderson MD Specimen: Skin, left cheek 1:01 PM DRIVER SUPERVISOR DERMATOPATHOLOGY LABORATORY Final Diagnosis Specimen A. SKIN, left cheek: ACTINIC KERATOSIS (L57.0) EPIDERMAL NECROSIS SUGGESTIVE OF EXCORIATION (L98.499) (see microscopic description) 1:01 PM [facility] DERMATOPATHOLOGY [facility]ORATORY at [address] [facility] Clinical History Basal Cell Carcinoma 1:01 PM [facility] DERMATOPATHOLOGY [facility]ORATORY Gross Description Specimen A: Received is one formalin filled container labeled with the patient's name and designated left cheek. The specimen consists of a shave biopsy measuring 7x5x1 mm. Jar 0. 1:01 PM [facility] DERMATOPATHOLOGY [facility]ORATORY Microscopic Description Specimen A. SKIN, left cheek: There is focal parakeratosis. The lower half of the epidermis shows disorderly maturation of keratinocytes with nuclear pleomorphism. The lesion extends to the base as follicular extension. The epidermis is focally necrotic and covered with a scale-crust. There is fibrin at the base. 1:01 PM [facility] DERMATOPATHOLOGY [facility]ORATORY Disclaimer An external and internal positive and negative controls are appropriate for the histochemical, immunohistochemical and immunofluorescence stain(s) in this case (if any), except where stated explicitly. The performance characteristics of the stain(s) cited in this report were developed and its performance characteristic determined by the Dermatopathology Laboratory at [facility], directed by Dr. Heber Carlton. These tests need not be, and therefore are not, approved by the [place] Food and Drug Administration. The tests are used for clinical purposes. Billing Codes Specimen Charges Stain Charges 44678 1 1:01 PM [facility] DERMATOPATHOLOGY LABORATORY Embedded Images 1:01 PM [facility] DERMATOPATHOLOGY [facility]ORATORY Pathology/Cytolog y TISSUE SPECIMEN FROM SKIN / Unknown 07/16/2023 07/19/2023 1:14 PM [facility] Colette GEORGE LAB - PATHOLOGY/CYTOLOGY OR DERABLES Final Result DERMATOPATHOLOGY LABORATORY [facility] - Department of Dermatology [address] [place] [address], [facility] [phone] documented in this encounter Visit Diagnoses Diagnosis Neoplasm of uncertain behavior of skin documented in this encounter
--- NOTE | 2025-04-12 08:44 | ECG_ITS ---
Test Date: 2025-04-12 08:55:15 Measurements Intervals [place] Rate: 68 P: 8 VA: 170 QRS: 9 QRSD: 93 T: 55 QT: 358 QTc: 382 Interpretive Statements SINUS RHYTHM EARLY PRECORDIAL R/S TRANSITION BASELINE ARTIFACT- V4 BORDERLINE ECG Compared to ECG 08/10/2024 10:47:45 No significant changes Electronically Signed On 04-12-2025 09:15:57 CDT by Thierno Garcia D.O.
== END 2025-04-12 08:39 | disposition home or self-care (01) ==
PROVIDERS: PCP Nurse Practitioner Family; Visit Provider Nurse Practitioner Family
DX: R07.9 Chest pain, unspecified (principal); R94.31 Abnormal electrocardiogram [ECG] [EKG]
CPT/HCPCS: 93005

== ENCOUNTER 2025-04-17 06:49 | Emergency (ER) | payer OTHER, SELFPAY ==
[2025-04-17] VITALS (11 sets, daily range): BP systolic 138–157; BP diastolic 77–88; PULSE 63–95; RESP 11–22; TEMP 36.7; O2SAT 99–100
--- NOTE | ~2025-04-17 | XR_ITS ---
EXAMINATION: XR chest 2V 04/17/2025 07:34 INDICATION: Left-sided chest pain PROCEDURE: 2 view chest COMPARISON: 10/21/2021 FINDINGS: The lungs are clear. The cardiomediastinal silhouette is within normal limits. There are no pleural effusions. There is no pneumothorax suspected. Prominent nipple shadows. IMPRESSION: 1: NO ACUTE CARDIOPULMONARY DISEASE. Reviewed, dictated and finalized at location A.
--- NOTE | 2025-04-17 06:50 | ECG_ITS ---
Test Date: 2025-04-17 06:55:30 Measurements Intervals [place] Rate: 69 P: -7 AR: 174 QRS: -4 QRSD: 96 T: 52 QT: 363 QTc: 391 Interpretive Statements SINUS RHYTHM LOW QRS VOLTAGE IN PRECORDIAL LEADS BASELINE ARTIFACT- I, III, AVR, AVL, AVF, V4-V6 BORDERLINE ECG Compared to ECG 04/12/2025 08:55:15 Low QRS voltage now present Electronically Signed On 04-17-2025 08:09:18 CDT by Thierno Garcia D.O.
--- OUTSIDE RECORDS SUMMARY | 2025-04-17 06:51 | XMS_ITS | Encounter Summary ---
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 All material will be returned. 05/29/2021 5:00 PM CDT [facility] Disclaimer The performance characteristics of all immunohistochemical and indirect immunofluorescence stains (if any) cited in this report were determined by the Histopathology Laboratory of [facility]. Some of these tests were developed by [...] attending (teaching) pathologist. 05/29/2021 5:00 PM CDT [facility] Case Report Surgical Pathology Report Case: [id number] Authorizing Provider: Bernice Swanson MD Collected: 05/23/2021 03:32 PM Ordering Location: [facility] Lab Received: 05/28/2021 03:32 PM Pathologist: Ruba Lyons MD Specimen: Slide Consultation 05/29/2021 5:00 PM CDT [facility] Embedded Images 05/29/2021 5:00 PM CDT [facility] Pathology/Cytolo gy SURGICAL PATHOLOGY CONSULTATION AND REPORT ON REFERRED SLIDES PREPARED ELSEWHERE / Unknown 05/23/2021 3:32 PM CDT 05/28/2021 3:32 PM CDT us Bernice Swanson MD LAB - PATHOLOGY/CYTOLOGY ORDERAB LES Final Result [facility] [address] [place] [address], [facility] [phone] documented in this encounter Visit Diagnoses Diagnosis Illness, unspecified documented in this encounter
--- OUTSIDE RECORDS SUMMARY | 2025-04-17 06:51 | XMS_ITS | Continuity of Care Document ---
Author Organization [facility] Address [address] [place] [address] Phone Care Team Providers Care Light Rail Train Operator Name Role Phone Uzma NARANJO R Unavailable [...] followup visit Supplemental Report Wrist Brace Tital Willard Tenotomy Lat Or Med Elbow W Tendon [...] Date Provider Providers Copied on Encounter [facility], [address] [place] [address], [id number], tel:[phone] [facility] No Information 2 Aaranson R. [address] [place] [address], [id number], . tel:[phone] [facility], [address] [place] [address], [id number], tel:[phone] [facility] No Information 2 Administrati ve Provider. [address] [place] [address], [id number], [place]. tel:[phone] Rating Letter [facility], [address] [place] [address], [id number], [place] tel:[phone] [facility] No Information 2 Zenobia Castro. [address] [place] [address], [id number], [place]. tel:[phone] [facility], [address] [place] [address], [id number], tel:[phone] [facility] LATERAL EPICONDYLITIS 2 Zenobia Castro. [address] [place] [address], [place], [id number], [place]. tel:[phone] [facility], [address] [address], [place], [place], [id number], [place] tel:[phone] [facility] LATERAL EPICONDYLITISJ OINT PAIN-UP/ARM 2 Strecker Matthew. [address] [facility], [address] [address], [place], [place], [id number], [place]. tel:[phone] [facility], [address] [address], [place], [place], [id number], [place] tel:[phone] [facility] LATERAL EPICONDYLITIS 2 Strecker Matthew. [address] [facility], [address] [address], [place], [place], [id number], [place]. tel:[phone] [facility], [address] [place] [address], [place], [place], [id number], [place] tel:[phone] [facility] LATERAL EPICONDYLITIS 2 Strecker Matthew. [address] [facility], [address] [address], [place], [place], [id number], [place]. tel:[phone] Office/outpa tient visit,est, [facility], [address] [address], [place], [place], [id number], [place] tel:[phone] [facility] LATERAL EPICONDYLITIS Fe 2 Strecker Matthew. [address] [facility], [address] [address], [place], [place], [id number], [place]. tel:[phone] [facility], [address] [place] [address], [place], [place], [id number], [place] tel:[phone] [facility] No Information 0 2 Administrati ve Provider. [address] [facility], [address] [address], [place], [place], [id number], [place]. tel:[phone] Office/outpa tient visit,est, [facility], [address] [facility] [address], [place], [place], [id number], [place] tel:[phone] [facility] LATERAL EPICONDYLITIS 1 Strecker Matthew. [address] [facility], [address], [place], [place], [id number], [place]. tel:[phone] Office/outpa tient visit,est, [facility], [address] [facility] [address], [place], [place], [id number], [place] tel:[phone] [facility] LATERAL EPICONDYLITIS 1 Strecker Matthew. [address] [facility], [address] [address], [place], [place], [id number], [place]. tel:[phone] Office/outpa tient visit,est, [facility], [address] [facility] [address], [place], [place], [id number], [place] tel:[phone] [facility] JOINT PAIN-UP/ARMLAT ERAL EPICONDYLITIS 1 Strecker Matthew. [address] [facility], [facility] [address], [place], [place], [id number], [place]. tel:[phone] [facility], [address] [facility] [address], [place], [place], [id number], [place] tel:[phone] [facility] No Information 1 Charancker Matthew. [address] [facility], [facility] [address], [place], [place], [id number], [place]. tel:[phone] Office/outpa tient visit,est, [facility], [address] [facility] [address], [place], [place], [id number], [place] tel:[phone] [facility] JOINT PAIN-UP/ARMLAT ERAL EPICONDYLITIS 1 Strecker Matthew. [address] [facility], [address], [place], [place], [id number], [place]. tel:[phone] Office/outpa tient visit,est, [facility], [address] [address], [place], [place], [id number], [place] tel:[phone] [facility] LATERAL EPICONDYLITIS January-2 4-201 1 Zenobia Castro. [address] [facility], [address], [place], [place], [id number], [place]. tel:[phone] [facility], [address] [address], [place], [place], [id number], [place] tel:[phone] [facility] No Information January-0 3-201 1 Zenobia Castro. [address] [facility], [facility] [address], [place], [place], [id number], [place]. tel:[phone] Office consultation , [facility], [address] [address], [place], [place], [id number], [place] tel:[phone] [facility] LATERAL EPICONDYLITIS 0 3-201 1 Zenobia Castro. [address] [facility], [address] [address], [place], [place], [id number], [place]. tel:[phone] Family History Family Member Type Diagnosis Age At Onset No Information Payers Payer name Insurance type Covered green party ID Authoriza tion(s) No Information Social History [...]
--- OUTSIDE RECORDS SUMMARY | 2025-04-17 06:51 | XMS_ITS | Clinical Summary ---
Author Organization [facility] Address [address] [place] [address] Care Team Providers Care Expediter Service Order Name Role Phone Unavailable Primary Care Provider Unavailabl e Source Comments [facility],non-owned Affiliates and Associated Physician Practices is amultiple site organization consisting of ambulatory clinics and hospital sitesin [place], [place], [place] and [place]. This disclosure is being madepursuant to the Care Everywhere program and may not contain all information available regarding this patient. 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
--- OUTSIDE RECORDS SUMMARY | 2025-04-17 06:51 | XMS_ITS | Encounter Summary ---
Author Organization [facility] Address [address] [place] [address] Care Team Providers Care Hand Printed Circuit Board Assembler Name Role Phone Unavailable Primary Care Provider Unavailabl e Encounter Details Date Type Department Care Team (Late st Contact Info) Description 07/16/2023 Lab Requisition [facility] - DermPath Lab [address] [facility] [place] [id number] Colette Saavedra PA [address] [place] [id number] Neoplasm of uncertain behavior of skin Social History Tobacco Use Types Packs/Day Years Used Date Smoking Tobacco: Never Assessed Sex and Gender Information Value Date Recorded Sex Assigned at Not on file 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 Gender Identity Not on file Sexual Orientation Not on file documented as of this encounter Plan of Treatment Not on file documented as of this encounter Procedures Procedure Name Priority Date/Time Associated Diagnosis Comments DERMATOPATHOLOGY Routine 07/16/2023 12:0 0 AM HONEYCOMB BLANKET MAKER Neoplasm of uncertain behavior of skin documented in this encounter Results * DERMATOPATHOLOGY (07/16/2023 12:00 AM HONEYCOMB BLANKET MAKER) Case Report Dermatopathology Report Case: [id number] Authorizing Provider: Colette Saavedra PA Collected: 07/16/2023 12:00 AM Ordering Location: [facility] DermPath Lab Received: 07/19/2023 01:14 PM Pathologist: Tatianna Anderson MD Specimen: Skin, left cheek 1:01 PM [employer]COMB [facility] [facility] DERMATOPATHOLOGY LABORATORY Final Diagnosis Specimen A. SKIN, left cheek: ACTINIC KERATOSIS (L57.0) EPIDERMAL NECROSIS SUGGESTIVE OF EXCORIATION (L98.499) (see microscopic description) 1:01 PM [facility] DERMATOPATHOLOGY LABORATORY at [address] [facility] Clinical History Basal Cell Carcinoma 1:01 PM [facility] DERMATOPATHOLOGY LABORATORY Gross Description Specimen A: Received is one formalin filled container labeled with the patient's name and designated left cheek. The specimen consists of a shave biopsy measuring 7x5x1 mm. Jar 0. 1:01 PM [facility] DERMATOPATHOLOGY LABORATORY Microscopic Description Specimen A. SKIN, left cheek: There is focal parakeratosis. The lower half of the epidermis shows disorderly maturation of keratinocytes with nuclear pleomorphism. The lesion extends to the base as follicular extension. The epidermis is focally necrotic and covered with a scale-crust. There is fibrin at the base. 1:01 PM [facility] DERMATOPATHOLOGY LABORATORY Disclaimer An external and internal positive and negative controls are appropriate for the histochemical, immunohistochemical and immunofluorescence stain(s) in this case (if any), except where stated explicitly. The performance characteristics of the stain(s) cited in this report were developed and its performance characteristic determined by the Dermatopathology Laboratory at [facility], directed by Dr. Heber Carlton. These tests need not be, and therefore are not, approved by the [place] Food and Drug Administration. The tests are used for clinical purposes. Billing Codes Specimen Charges Stain Charges 84294 1 1:01 PM [facility] DERMATOPATHOLOGY LABORATORY Embedded Images 1:01 PM [facility] DERMATOPATHOLOGY LABORATORY Pathology/Cytolog y TISSUE SPECIMEN FROM SKIN / Unknown 07/16/2023 07/19/2023 1:14 PM [facility] Colette GEOR[facility] - PATHOLOGY/CYTOLOGY OR DERABLES Final Result DERMATOPATHOLOGY LABORATORY [facility] - Department of Dermatology [address] [place] [address], [facility] [phone] documented in this encounter Visit Diagnoses Diagnosis Neoplasm of uncertain behavior of skin documented in this encounter
--- OUTSIDE RECORDS SUMMARY | 2025-04-17 06:51 | XMS_ITS | Clinical Summary ---
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
[2025-04-17] MEDS: ASPIRIN 81 MG CHEWABLE TABLET 324 MG PO (07:01)
[2025-04-17 07:08] LABS: Hematocrit 37.7 % (42.0-52.0); Hemoglobin 12.4 g/dL (14.0-18.0); Immature Granulocyte Percent A 0.2 % (0-0.5); Lymphocytes Absolute Auto 1.74 K/mm3 (0.9-3.2); Mean Corpuscular HGB Conc 32.9 g/dl (32-36); Mean Corpuscular Hemoglobin 31.6 pg (26-34); Mean Corpuscular Volume 95.9 fl (80-100); Nucleated Red Blood Cells Absolute Auto 0.000 K/mm3 (0.0-0.012); Nucleated Red Blood Cells Perc 0.0 % (0.0-0.2); Platelet Count Result 156 k/mm3 (150-375); Red Blood Count 3.93 M/mm3 (4.6-6.20); White Blood Count 5.2 K/mm3 (4.5-10.0)
[2025-04-17 07:19] LABS: INR 1.1; Prothrombin Time 14.0 Seconds (11.1-14.7)
[2025-04-17 07:20] LABS: Alanine Aminotransferase 37 U/L (6-50); Albumin Level 4.3 g/dL (3.5-5.1); Alkaline Phosphatase 97 U/L (38-126); Anion Gap 13 mmol/L (4-12); Aspartate Amino Transferase 39 U/L (17-59); Bilirubin,Total 0.7 mg/dL (0.2-1.3); Blood Urea Nitrogen 17 mg/dL (9-20); Calcium 9.2 mg/dL (8.4-10.2); Carbon Dioxide 17 mmol/L (22-30); Chloride 108 mmol/L (98-107); Estimated CRCL calculation 59 ml/min; Estimated Glomerular Filt Rate > 60; Glucose 174 mg/dL (65-110); Lipase 326 U/L (23-300); Partial Thromboplastin Time 29.3 Seconds (22.3-36.8); Potassium 4.7 mmol/L (3.4-5.0); Sodium 138 mmol/L (137-145); Total Protein 7.1 g/dL (6.3-8.2)
--- OUTSIDE RECORDS SUMMARY | 2025-04-17 07:21 | XMS_ITS | Encounter Summary ---
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 [id number]. All material will be returned. 05/29/2021 5:00 PM CDT [facility] Disclaimer The performance characteristics of all immunohistochemical and indirect immunofluorescence stains (if any) cited in this report were determined by the Histopathology Laboratory of [facility]. Some of these tests were developed by [...] attending (teaching) pathologist. 05/29/2021 5:00 PM CDT [facility] Case Report Surgical Pathology Report Case: [id number] Authorizing Provider: Bernice Swanson MD Collected: 05/23/2021 03:32 PM Ordering Location: [facility] Lab Received: 05/28/2021 03:32 PM Pathologist: Ruba Lyons MD Specimen: Slide Consultation 05/29/2021 5:00 PM CDT [facility] Embedded Images 05/29/2021 5:00 PM CDT [facility] Pathology/Cytolo gy SURGICAL PATHOLOGY CONSULTATION AND REPORT ON REFERRED SLIDES PREPARED ELSEWHERE / Unknown 05/23/2021 3:32 PM CDT 05/28/2021 3:32 PM CDT us Bernice Swanson MD LAB - PATHOLOGY/CYTOLOGY ORDERAB LES Final Result [facility] [address] [place] [address], [facility] [phone] documented in this encounter Visit Diagnoses Diagnosis Illness, unspecified documented in this encounter
--- OUTSIDE RECORDS SUMMARY | 2025-04-17 07:21 | XMS_ITS | Continuity of Care Document ---
Author Organization [facility] Address [address] [place] [address] Phone Care Team Providers Care Calender Runner Name Role Phone Uzma NARANJO R Unavailable [...] followup visit Supplemental Report Wrist Brace Tital Gallitzin Tenotomy Lat Or Med Elbow W Tendon [...] Date Provider Providers Copied on Encounter [facility], [address] [place] [address], [id number], tel:[phone] [facility] No Information 2 Aaranson R. [address] [place] [address], [id number], . tel:[phone] [facility], [address] [place] [address], [id number], tel:[phone] [facility] No Information 2 Administrati ve Provider. [address] [place] [address], [id number], [place]. tel:[phone] Rating Letter [facility], [address] [place] [address], [id number], [place] tel:[phone] [facility] No Information 2 Zenobia Castro. [address] [place] [address], [id number], [place]. tel:[phone] [facility], [address] [place] [address], [id number], tel:[phone] [facility] LATERAL EPICONDYLITIS 2 Zenobia Castro. [address] [place] [address], [place], [id number], [place]. tel:[phone] [facility], [address] [address], [place], [place], [id number], [place] tel:[phone] [facility] LATERAL EPICONDYLITISJ OINT PAIN-UP/ARM 2 Strecker Matthew. [address] [facility], [address] [address], [place], [place], [id number], [place]. tel:[phone] [facility], [address] [address], [place], [place], [id number], [place] tel:[phone] [facility] LATERAL EPICONDYLITIS 2 Strecker Matthew. [address] [facility], [address] [address], [place], [place], [id number], [place]. tel:[phone] [facility], [address] [place] [address], [place], [place], [id number], [place] tel:[phone] [facility] LATERAL EPICONDYLITIS 2 Strecker Matthew. [address] [facility], [address] [address], [place], [place], [id number], [place]. tel:[phone] Office/outpa tient visit,est, [facility], [address] [address], [place], [place], [id number], [place] tel:[phone] [facility] LATERAL EPICONDYLITIS Fe 2 Strecker Matthew. [address] [facility], [address] [address], [place], [place], [id number], [place]. tel:[phone] [facility], [address] [place] [address], [place], [place], [id number], [place] tel:[phone] [facility] No Information 0 2 Administrati ve Provider. [address] [facility], [address] [address], [place], [place], [id number], [place]. tel:[phone] Office/outpa tient visit,est, [facility], [address] [facility] [address], [place], [place], [id number], [place] tel:[phone] [facility] LATERAL EPICONDYLITIS 1 Strecker Matthew. [address] [facility], [address], [place], [place], [id number], [place]. tel:[phone] Office/outpa tient visit,est, [facility], [address] [facility] [address], [place], [place], [id number], [place] tel:[phone] [facility] LATERAL EPICONDYLITIS 1 Strecker Matthew. [address] [facility], [address] [address], [place], [place], [id number], [place]. tel:[phone] Office/outpa tient visit,est, [facility], [address] [facility] [address], [place], [place], [id number], [place] tel:[phone] [facility] JOINT PAIN-UP/ARMLAT ERAL EPICONDYLITIS 1 Strecker Matthew. [address] [facility], [facility] [address], [place], [place], [id number], [place]. tel:[phone] [facility], [address] [facility] [address], [place], [place], [id number], [place] tel:[phone] [facility] No Information 1 Charancker Matthew. [address] [facility], [facility] [address], [place], [place], [id number], [place]. tel:[phone] Office/outpa tient visit,est, [facility], [address] [facility] [address], [place], [place], [id number], [place] tel:[phone] [facility] JOINT PAIN-UP/ARMLAT ERAL EPICONDYLITIS 1 Strecker Matthew. [address] [facility], [address], [place], [place], [id number], [place]. tel:[phone] Office/outpa tient visit,est, [facility], [address] [address], [place], [place], [id number], [place] tel:[phone] [facility] LATERAL EPICONDYLITIS January-2 4-201 1 Zenobia Castro. [address] [facility], [address], [place], [place], [id number], [place]. tel:[phone] [facility], [address] [address], [place], [place], [id number], [place] tel:[phone] [facility] No Information January-0 3-201 1 Zenobia Castro. [address] [facility], [facility] [address], [place], [place], [id number], [place]. tel:[phone] Office consultation , [facility], [address] [address], [place], [place], [id number], [place] tel:[phone] [facility] LATERAL EPICONDYLITIS 0 3-201 1 Zenobia Castro. [address] [facility], [address] [address], [place], [place], [id number], [place]. tel:[phone] Family History Family Member Type Diagnosis Age At Onset No Information Payers Payer name Insurance type Covered alliance party ID Authoriza tion(s) No Information Social [...]
--- OUTSIDE RECORDS SUMMARY | 2025-04-17 07:21 | XMS_ITS | Encounter Summary ---
Author Organization [facility] Address [address] [place] [address] Care Team Providers Care Stripper Cutter Machine Name Role Phone Unavailable Primary Care Provider Unavailabl e Encounter Details Date Type Department Care Team (Late st Contact Info) Description 07/16/2023 Lab Requisition [facility] - DermPath Lab [address] [facility] [place] [id number] Colette Saavedra PA [address] [place] [phone] Neoplasm of uncertain behavior of skin Social History Tobacco Use Types Packs/Day Years Used Date Smoking Tobacco: Never Assessed Sex and Gender Information Value Date Recorded Sex Assigned at Not on file 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 Gender Identity Not on file Sexual Orientation Not on file documented as of this encounter Plan of Treatment Not on file documented as of this encounter Procedures Procedure Name Priority Date/Time Associated Diagnosis Comments DERMATOPATHOLOGY Routine 07/16/2023 12:0 0 AM COMPLIANCE AIDE Neoplasm of uncertain behavior of skin documented in this encounter Results * DERMATOPATHOLOGY (07/16/2023 12:00 AM COMPLIANCE AIDE) Case Report Dermatopathology Report Case: [id number] Authorizing Provider: Colette Saavedra PA Collected: 07/16/2023 12:00 AM Ordering Location: [facility] DermPath Lab Received: 07/19/2023 01:14 PM Pathologist: Tatianna Anderson MD Specimen: Skin, left cheek 1:01 PM COMPLIANCE AIDE DERMATOPATHOLOGY LABORATORY Final Diagnosis Specimen A. SKIN, left cheek: ACTINIC KERATOSIS (L57.0) EPIDERMAL NECROSIS SUGGESTIVE OF EXCORIATION (L98.499) (see microscopic description) 1:01 PM [facility] DERMATOPATHOLOGY LABORATORY at [address] [facility] Clinical History Basal Cell Carcinoma 1:01 PM [facility] DERMATOPATHOLOGY LABORATORY Gross Description Specimen A: Received is one formalin filled container labeled with the patient's name and designated left cheek. The specimen consists of a shave biopsy measuring 7x5x1 mm. Jar 0. 1:01 PM [facility] DERMATOPATHOLOGY LABORATORY Microscopic Description Specimen A. SKIN, left cheek: There is focal parakeratosis. The lower half of the epidermis shows disorderly maturation of keratinocytes with nuclear pleomorphism. The lesion extends to the base as follicular extension. The epidermis is focally necrotic and covered with a scale-crust. There is fibrin at the base. 1:01 PM [facility] DERMATOPATHOLOGY LABORATORY Disclaimer An external and internal positive and negative controls are appropriate for the histochemical, immunohistochemical and immunofluorescence stain(s) in this case (if any), except where stated explicitly. The performance characteristics of the stain(s) cited in this report were developed and its performance characteristic determined by the Dermatopathology Laboratory at [facility], directed by Dr. Heber Carlton. These tests need not be, and therefore are not, approved by the [place] Food and Drug Administration. The tests are used for clinical purposes. Billing Codes Specimen Charges Stain Charges 67038 1 1:01 PM [facility] DERMATOPATHOLOGY LABORATORY Embedded Images 1:01 PM [facility] DERMATOPATHOLOGY LABORATORY Pathology/Cytolog y TISSUE SPECIMEN FROM SKIN / Unknown 07/16/2023 07/19/2023 1:14 PM [facility] - PATHOLOGY/CYTOLOGY OR DERABLES Final Result DERMATOPATHOLOGY LABORATORY [facility] - Department of Dermatology [address] [place] [address], [facility] [phone] documented in this encounter Visit Diagnoses Diagnosis Neoplasm of uncertain behavior of skin documented in this encounter
--- OUTSIDE RECORDS SUMMARY | 2025-04-17 07:22 | XMS_ITS | Clinical Summary ---
Author Organization [facility] Address [address] [place] [address] Care Team Providers Care Parking Assistant Name Role Phone Unavailable Primary Care Provider Unavailabl e Source Comments [facility],non-owned Affiliates and Associated Physician Practices is amultiple site organization consisting of ambulatory clinics and hospital sitesin [place], [place], [place] and [place]. This disclosure is being madepursuant to the Care Everywhere program and may not contain all information available regarding this patient. Last updated 18.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 Care Address: [facility] CLAIMS [address] [place] [address] [employer]
--- OUTSIDE RECORDS SUMMARY | 2025-04-17 07:22 | XMS_ITS | Clinical Summary ---
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
--- NOTE | 2025-04-17 07:29 | ED.CHESTPAIN ---
HPI - Chest Pain General Chief Complaint: Chest Pain Stated Complaint: chest pain Time Seen by Provider: 04/17/25 07:05 History of Present Illness HPI narrative: Pt presents with intermittent sharp anterior left sided CP for last two weeks. Pt says it is sharp and lasts a few seconds then resolves but recurs. Pt has no pain at moment, but was more uncomfortable when driving this morning. Pt shruti cough or fever. Pt cannot reproduce pain. Related Data Home Medications ?Medication ?Instructions ?Recorded ?Confirmed ?Last Taken ?Type ibuprofen 200 mg tablet (Advil) 400 mg PO Q6H PRN Pain 04/18/20 03/28/25 04/20/22 History tadalafil 5 mg tablet (Cialis) 5 mg PO DAILY PRN Sexual Activity 09/10/23 03/28/25 Unknown History Allergies Allergy/AdvReac Type Severity Reaction Status Date / Time morphine Allergy Unknown DIFFICULTY Verified 04/17/25 07:40 BREATHING/CAUSED LUNG COLLAPSE tamsulosin AdvReac Mild INCREASED Verified 04/17/25 07:40 VERTIGO/ED/LIGHT HEADED Review of Systems Review of Systems: All systems reviewed & are unremarkable except as noted in HPI and below PMFSH Past Medical History Medical History (Updated 04/17/25 @ 08:10 by Charly Alejandre III, ) Cellulitis and abscess of left leg BMI 26.0-26.9,adult Memory changes Lumbar spondylosis DISH (diffuse idiopathic skeletal hyperostosis) Low back pain Decreased exercise tolerance Chest pain Urinary frequency Urinary hesitancy Hypersomnia Witnessed episode of apnea Snoring Globus sensation Postnasal drip Plantar fascial fibromatosis of right foot Hemorrhoids, internal Seasonal allergies BMI 25.0-25.9,adult Weight loss Otitis externa of right ear Callus between toes Screening for colon cancer URI (upper respiratory infection) Chronic headaches Cervicalgia 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 Emerson H/O shoulder surgery bilateral, 2009 & [address] Dave Family History Family History Father Family history of lung cancer Acute myocardial infarction Heart disease Mother Mesothelioma Other Diabetes mellitus Social History Social History Smoking packs per day: 1.5 Smoking cigarettes per day: 30.0 Years smoked: 20 Smoking pack-years: 30.00 Smoking status: Former smoker Tobacco type: cigarettes Second hand tobacco smoke exposure: No Smoking end date: 03/06/90 Alcohol intake: current Drinks per week: 3 Substance use: never Substance use type: does not use Lack of Transportation: No Lack of Food: Never True Current Housing: I Have Housing Concerned About Future Housing: No Difficulty Paying Gas/Electric Bills: No Difficulty Paying for Meds: No Currently Unemployed: No Education: High School Diploma/GED Difficulty w/ Childcare or Family Care: No Living arrangements: other Additional living arrangements comments: with sp Occupation/Education: retired Gender identity (if verbalized by the patient): Male Sexual Orientation (if Verbalized by the Patient): Straight or Heterosexual Spiritual care concerns: No Agree to blood products: Yes Exam Const: General: healthy appearing and no acute distress Nutritional Appearance: well nourished Orientation/consciousness: patient oriented x3 Limitations: no limitations HENMT: Head: normal to inspection Eyes: EOM: EOMs intact bilaterally Neck: Neck: normal visual inspection, no lymphadenopathy and no meningeal signs Chest: Chest palpation & inspection: normal inspection of the chest and no tenderness Resp: Effort & Inspection: normal respiratory effort Auscultation: clear to auscultation bilaterally Cardio: Rate: regular rate Rhythm: regular rhythm GI: GI Palp: Yes Soft to palpation and No Tenderness to palpation present (GI) Auscultation: normal bowel sounds Skin: General skin exam: normal color Rashes: no rashes Wounds: no wounds Neuro: General: patient oriented x3, moves all extremities, no meningeal signs and no focal motor deficits Speech: normal speech Extrem: General: normal to inspection and no clubbing, cyanosis or edema Psych: Mental Status: mental status grossly normal Affect: normal affect Attitude: cooperative Course Vital Signs Vital signs: Vital Signs Temperature 98.1 F 04/17/25 06:52 Pulse Rate 84 04/17/25 06:52 Respiratory Rate 12 04/17/25 06:52 Blood Pressure 157/85 H 04/17/25 06:52 Pulse Oximetry 100 04/17/25 06:52 Oxygen Delivery Room Air 04/17/25 06:52 Temperature 98.1 F 04/17/25 06:52 Pulse Rate 67 04/17/25 08:37 Respiratory Rate 16 04/17/25 08:37 Blood Pressure 138/80 04/17/25 08:37 Pulse Oximetry 99 04/17/25 08:37 Oxygen Delivery Room Air 04/17/25 06:52 MDM - Chest Pain MDM Narrative Medical decision making narrative: Pt presents with sharp brief intermittent left sided CP off and on for two weeks. seems musculoskelatal but given risk factors will need to rule out acs with ekg, cxr and labs. will treat pain with a little toradol. Pt feels better after toradol. work up and ekg normal. likely muscular. home on naprosyn. Lab Data 04/17/25 07:02 04/17/25 07:02 Labs: Lab Results 04/17/25 Range/Units 07:02 WBC 5.2 (4.5-10.0) K/mm3 RBC 3.93 L (4.6-6.20) M/mm3 Hgb 12.4 L (14.0-18.0) g/dL Hct 37.7 L (42.0-52.0) % MCV 95.9 (80-100) fl MCH 31.6 (26-34) pg MCHC 32.9 (32-36) g/dl RDW 13.5 (11.5-14.5) % Plt Count 156 (150-375) k/mm3 MPV 9.4 (7.4-10.4) fl Immature Gran % (Auto) 0.2 (0-0.5) % Neut % (Auto) 50.1 (45.5-73.1) % Lymph % (Auto) 33.5 (18.3-44.2) % [place] % (Auto) 13.7 H (2.6-8.5) % Eos % (Auto) 2.1 (0-4.4) % Baso % (Auto) 0.4 (0.2-1.2) % Lymph # (Auto) 1.74 (0.9-3.2) K/mm3 [place] # (Auto) 0.7 H (0.1-0.6) K/mm3 Eos # (Auto) 0.1 (0-0.3) K/mm3 Baso # (Auto) 0.0 (0.0-0.1) K/mm3 Abs Immat Gran (auto) 0.01 (0.00-0.031) K/mm3 Absolute Neuts (auto) 2.6 (1.3-6.7) K/mm3 Absolute Nucleated RBC 0.000 (0.0-0.012) K/mm3 Nucleated RBC % 0.0 (0.0-0.2) % PT 14.0 (11.1-14.7) Seconds INR 1.1 APTT 29.3 (22.3-36.8) Seconds Sodium 138 (137-145) mmol/L Potassium 4.7 (3.4-5.0) mmol/L Chloride 108 H (98-107) mmol/L Carbon Dioxide 17 L (22-30) mmol/L Anion Gap 13 H (4-12) mmol/L BUN 17 (9-20) mg/dL Creatinine 0.96 (0.7-1.3) mg/dL Estim Creat Clear Calc 59 ml/min Estimated GFR > 60 (59 - ) Glucose 174 H (65-110) mg/dL Calcium 9.2 (8.4-10.2) mg/dL Total Bilirubin 0.7 (0.2-1.3) mg/dL AST 39 (17-59) U/L ALT 37 (6-50) U/L Alkaline Phosphatase 97 (38-126) U/L Troponin I < 0.012 (0.000-0.034) ng/mL Total Protein 7.1 (6.3-8.2) g/dL Albumin 4.3 (3.5-5.1) g/dL Lipase 326 H (23-300) U/L ECG Data EKG #1: Interpretation: nsr rate [address] or t wave changes Discharge Plan Discharge Clinical Impression: Atypical chest pain Patient Disposition: Home Condition: Improved Instructions: Antibiotic Form, Chest Wall Pain (ED) Patient Language: Armenian Prescriptions: New naproxen [Naprosyn] 500 mg tablet 500 mg PO BID Qty: 20 0RF No Action famotidine 40 mg tablet 40 mg PO BID Qty: 60 5RF donepezil [Aricept] 10 mg tablet 10 mg PO QHS Qty: 30 11RF prednisone 20 mg tablet 20 mg PO QAM Qty: 7 0RF doxycycline hyclate 100 mg tablet 100 mg PO Q12H Qty: 14 0RF ibuprofen [Advil] 200 mg tablet 400 mg PO Q6H PRN (Reason: Pain) hydrocortisone [Anusol-HC] 2.5 % cream with perineal applicator 1 applic RECTAL QHS PRN (Reason: hemorrhoids) Qty: 30 2RF fluticasone propionate [Flonase Allergy Relief] 50 mcg/actuation spray,suspension 1 spray intranasal BID Qty: 16 11RF Rx Instructions: administer into each nostril tadalafil [Cialis] 5 mg tablet 5 mg PO DAILY PRN (Reason: Sexual Activity) Patient Comments: treated by urologist losartan 100 mg tablet 100 mg PO HS Qty: 90 3RF atorvastatin 40 mg tablet 40 mg PO DAILY Qty: 90 3RF pantoprazole 40 mg tablet,delayed release (DR/EC) 40 mg PO HS Qty: 90 3RF metformin 500 mg tablet extended release 24 hr 1,000 mg PO DAILY Qty: 180 3RF lorazepam 1 mg tablet 1 mg PO DIRECTED Qty: 2 0RF Rx Instructions: take 1 tablet 60min prior to MRI. Bring 2nd tablet with you to MRI test and take if need just prior to MRI. Follow-up/Referrals: Ilsa Gonsalves NP [Primary Care Provider] - Quality HEART score for chest pain patients History: slightly suspicious ECG: normal Age: > or = to 65 years Risk factors: 1 or 2 risk factors Troponin: < or = to 1x normal limit Heart score: 3
[2025-04-17 07:31] LABS: Troponin I < 0.012 ng/mL (0.000-0.034)
[2025-04-17] MEDS: KETOROLAC 15 MG/ML VIAL (*BKC) IV PUSH (07:40)
== END 2025-04-17 08:38 | disposition home or self-care (01) ==
PROVIDERS: Student in an Organized Health Care Education/Training Program; Emergency Provider Emergency Medicine; PCP Nurse Practitioner Family
DX: R07.89 Other chest pain (principal); E78.5 Hyperlipidemia, unspecified; I10 Essential (primary) hypertension; E11.9 Type 2 diabetes mellitus without complications; Z87.891 Personal history of nicotine dependence
CPT/HCPCS: 36415; 71046; 80053; 83690; 84484; 85025; 85610; 85730; 93005; 96374; 99284; A9270; J1885

== ENCOUNTER 2025-04-19 08:50 | Outpatient (CLI) | payer OTHER, SELFPAY ==
--- NOTE | 2025-04-19 08:57 | EST_ITS ---
Patient Info Name: Faizan Whiteside Age: 74 years : 1950 Gender: Male Ht: 68 in Wt: 170 lbs BSA: 1.94 m2 HR: 63 bpm BP: 143 / 72 mmHg Exam Date: 04/19/2025 8:57 AM Patient Status: O Admit Date: 04/19/2025 Exam Type: CA stress test treadmill A treadmill exercise stress test was performed. Staff Attending Provider: Ilsa Gonsalves Exercise Technologist: Sarita Cameron Exercise Physician: Thierno Garcia DO Summary 1. 1. Negative Jhon exercise stress test for ischemic ST changes by ECG criteria. 2. 2. Good functional capacity, achieving 7.7 METs of workload. 3. 3. Appropriate HR response to exercise. 4. 4. Appropriate HR recovery at 1 minute post exercise. 5. 5. No imaging with stress testing. 6. 6. Patient informed of the above results. Protocol: Jhon Stress ECG Details Stage: REST Duration (min): 1 min : 3 sec Speed (mph): 0.0 Grade (%): 0 HR (bpm): 64 SBP (mmHg): 143 DBP (mmHg): 72 METS: --- Stage: REST Duration (min): 2 min : 55 sec Speed (mph): 0.0 Grade (%): 0 HR (bpm): 67 SBP (mmHg): 143 DBP (mmHg): 72 METS: --- Stage: STAGE 1 Duration (min): 1 min : 0 sec Speed (mph): 1.7 Grade (%): 10 HR (bpm): 93 SBP (mmHg): 143 DBP (mmHg): 72 METS: --- Stage: STAGE 1 Duration (min): 2 min : 0 sec Speed (mph): 1.7 Grade (%): 10 HR (bpm): 104 SBP (mmHg): 143 DBP (mmHg): 72 METS: --- Stage: STAGE 1 Duration (min): 3 min : 0 sec Speed (mph): 1.7 Grade (%): 10 HR (bpm): 100 SBP (mmHg): 188 DBP (mmHg): 60 METS: --- Stage: STAGE 2 Duration (min): 1 min : 0 sec Speed (mph): 2.5 Grade (%): 12 HR (bpm): 111 SBP (mmHg): 188 DBP (mmHg): 60 METS: --- Stage: STAGE 2 Duration (min): 2 min : 0 sec Speed (mph): 2.5 Grade (%): 12 HR (bpm): 122 SBP (mmHg): 190 DBP (mmHg): 68 METS: --- Stage: STAGE 2 Duration (min): 3 min : 0 sec Speed (mph): 2.5 Grade (%): 12 HR (bpm): 124 SBP (mmHg): 190 DBP (mmHg): 68 METS: --- Stage: STAGE 3 Duration (min): 0 min : 21 sec Speed (mph): 3.4 Grade (%): 14 HR (bpm): 127 SBP (mmHg): 190 DBP (mmHg): 68 METS: --- Stage: RECOVERY Duration (min): 0 min : 38 sec Speed (mph): 0.0 Grade (%): 0 HR (bpm): 114 SBP (mmHg): 202 DBP (mmHg): 69 METS: --- Stage: RECOVERY Duration (min): 1 min : 38 sec Speed (mph): 0.0 Grade (%): 0 HR (bpm): 86 SBP (mmHg): 202 DBP (mmHg): 69 METS: --- Stage: RECOVERY Duration (min): 2 min : 38 sec Speed (mph): 0.0 Grade (%): 0 HR (bpm): 74 SBP (mmHg): 202 DBP (mmHg): 69 METS: --- Stage: RECOVERY Duration (min): 3 min : 38 sec Speed (mph): 0.0 Grade (%): 0 HR (bpm): 74 SBP (mmHg): 163 DBP (mmHg): 68 METS: --- Stage: RECOVERY Duration (min): 4 min : 38 sec Speed (mph): 0.0 Grade (%): 0 HR (bpm): 73 SBP (mmHg): 163 DBP (mmHg): 68 METS: --- Stage: RECOVERY Duration (min): 5 min : 38 sec Speed (mph): 0.0 Grade (%): 0 HR (bpm): 74 SBP (mmHg): 152 DBP (mmHg): 71 METS: --- Stage: RECOVERY Duration (min): 6 min : 38 sec Speed (mph): 0.0 Grade (%): 0 HR (bpm): 75 SBP (mmHg): 152 DBP (mmHg): 71 METS: --- Stage: RECOVERY Duration (min): 7 min : 17 sec Speed (mph): 0.0 Grade (%): 0 HR (bpm): 72 SBP (mmHg): 140 DBP (mmHg): 71 METS: --- Rest HR: 67 bpm Peak HR: 131 bpm Rest Sys BP: 143 mmHg Peak Sys BP: 202 mmHg Max Pred HR: 148 bpm % Max Pred HR: 89 % Target HR: 126 bpm Max RPP: 26,462 bpm*mmHg Whatley Score: -0 Termination Reason: Reached target heart rate or workload Cardiac Symptoms: Shortness of breath Max ST Seg Deviation: 1.30 mm Total Time: 6 min : 21 sec Rest Benoit BP: 72 mmHg Peak Benoit BP: 69 mmHg Angina Score: None Total METS: 7.7 Resting ECG Sinus rhythm, IRBBB. Stress ECG No ST changes. Arrhythmias None. Report Signatures
--- OUTSIDE RECORDS SUMMARY | 2025-04-19 08:58 | XMS_ITS | Encounter Summary ---
Author Organization [facility] Address [address] [place] [address] Care Team Providers Care Loading Supervisor Name Role Phone Unavailable Primary Care Provider Unavailabl e Encounter Details Date Type Department Care Team (Late st Contact Info) Description 07/16/2023 Lab Requisition [facility] - DermPath Lab [address] [facility] [place] [phone] Colette Saavedra PA [address] [place] [phone] Neoplasm of uncertain behavior of skin Social History Tobacco Use Types Packs/Day Years Used Date Smoking Tobacco: Never Assessed Sex and Gender Information Value Date Recorded Sex Assigned at Not on file Legal 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 Gender Identity Not on file Sexual Orientation Not on file documented as of this encounter Plan of Treatment Not on file documented as of this encounter Procedures Procedure Name Priority Date/Time Associated Diagnosis Comments DERMATOPATHOLOGY Routine 07/16/2023 12:0 0 AM FABRICATION LEAD Neoplasm of uncertain behavior of skin documented in this encounter Results * DERMATOPATHOLOGY (07/16/2023 12:00 AM FABRICATION LEAD) Case Report Dermatopathology Report Case: [id number] Authorizing Provider: Colette Saavedra PA Collected: 07/16/2023 12:00 AM Ordering Location: [facility] DermPath Lab Received: 07/19/2023 01:14 PM Pathologist: Tatianna Anderson MD Specimen: Skin, left cheek 1:01 PM FABRICATION LEAD DERMATOPATHOLOGY LABORATORY Final Diagnosis Specimen A. SKIN, left cheek: ACTINIC KERATOSIS (L57.0) EPIDERMAL NECROSIS SUGGESTIVE OF EXCORIATION (L98.499) (see microscopic description) 1:01 PM [facility] DERMATOPATHOLOGY LABORATORY at [address] [facility] Clinical History Basal Cell Carcinoma 1:01 PM [facility] DERMATOPATHOLOGY LABORATORY Gross Description Specimen A: Received is one formalin filled container labeled with the patient's name and designated left cheek. The specimen consists of a shave biopsy measuring 7x5x1 mm. Jar 0. 1:01 PM [facility] DERMATOPATHOLOGY LABORATORY Microscopic Description Specimen A. SKIN, left cheek: There is focal parakeratosis. The lower half of the epidermis shows disorderly maturation of keratinocytes with nuclear pleomorphism. The lesion extends to the base as follicular extension. The epidermis is focally necrotic and covered with a scale-crust. There is fibrin at the base. 1:01 PM [facility] DERMATOPATHOLOGY LABORATORY Disclaimer An external and [...] purposes. Billing Codes Specimen Charges Stain Charges 08924 1 1:01 PM [facility] DERMATOPATHOLOGY LABORATORY Embedded Images 1:01 PM [facility] DERMATOPATHOLOGY LABORATORY Pathology/Cytolog y TISSUE SPECIMEN FROM SKIN / Unknown 07/16/2023 07/19/2023 1:14 PM [facility] - PATHOLOGY/CYTOLOGY OR DERABLES Final Result DERMATOPATHOLOGY LABORATORY [facility] - Department of Dermatology [address] [place] [address], [facility] [phone] documented in this encounter Visit Diagnoses Diagnosis Neoplasm of uncertain behavior of skin documented in this encounter
--- OUTSIDE RECORDS SUMMARY | 2025-04-19 08:58 | XMS_ITS | Continuity of Care Document ---
Author Organization [facility] Address [address] [place] [address] Phone Care Team Providers Care Business Performance Manager Name Role Phone Uzma NARANJO R [...] followup visit Supplemental Report Wrist Brace Tital [place] Tenotomy Lat Or Med Elbow W Tendon [...] Date Provider Providers Copied on Encounter [email or web address] [facility], [address] [place] [address], [id number], tel:[phone] [facility] [email or web address] [facility] No Information 2 Aaranson R. [address] [place] [address], [id number], . tel:[phone] [employer] [facility], [address] [place] [address], [id number], tel:[phone] [employer] [facility] No Information 2 Administrati ve Provider. [address] [place] [address], [id number], [place]. tel:[phone] Rating Letter [facility] [email or web address] [facility], [address] [place] [address], [id number], [place] tel:[phone] [employer] [facility] No Information 2 Zenobia Castro. [address] [place] [address], [id number], [place]. tel:[phone] [employer] [facility], [address] [place] [address], [id number], tel:[phone] [facility] [email or web address] [facility] LATERAL EPICONDYLITIS 2 Zenobia Castro. [address] [place] [address], [place], [id number], [place]. tel:[phone] [facility], [address] [address], [place], [place], [id number], [place] tel:[phone] [facility] LATERAL EPICONDYLITISJ OINT PAIN-UP/ARM 2 Strecker Matthew. [address] [facility], [address] [address], [place], [place], [id number], [place]. tel:[phone] [facility], [address] [address], [place], [place], [id number], [place] tel:[phone] [facility] LATERAL EPICONDYLITIS 2 Strecker Matthew. [address] [facility], [address] [address], [place], [place], [id number], [place]. tel:[phone] [facility], [address] [place] [address], [place], [place], [id number], [place] tel:[phone] [facility] LATERAL EPICONDYLITIS 2 Strecker Matthew. [address] [facility], [address] [address], [place], [place], [id number], [place]. tel:[phone] Office/outpa tient visit,est, [facility], [address] [address], [place], [place], [id number], [place] tel:[phone] [employer] [facility] LATERAL EPICONDYLITIS Fe 2 Strecker Matthew. [address] [facility], [address] [address], [place], [place], [id number], [place]. tel:[phone] [facility], [address] [place] [address], [place], [place], [id number], [place] tel:[phone] [facility] No Information 0 2 Administrati ve Provider. [address] [facility], [address] [address], [place], [place], [id number], [place]. tel:[phone] Office/outpa tient visit,est, [facility], [address], [place], [place], [id number], [place] tel:[phone] [facility] LATERAL EPICONDYLITIS 1 Strecker Matthew. [address] [facility], [address], [place], [place], [id number], [place]. tel:[phone] Office/outpa tient visit,est, [facility], [address], [place], [place], [id number], [place] tel:[phone] [facility] LATERAL EPICONDYLITIS 1 Strecker Matthew. [address] [facility], [address] [address], [place], [place], [id number], [place]. tel:[phone] Office/outpa tient visit,est, [facility], [address], [place], [place], [id number], [place] tel:[phone] [facility] JOINT PAIN-UP/ARMLAT ERAL EPICONDYLITIS 1 Strecker Matthew. [address] [facility], [facility] [address], [place], [place], [id number], [place]. tel:[phone] [facility], [address], [place], [place], [id number], [place] tel:[phone] [facility] No Information 1 Charancker Matthew. [address] [facility], [facility] [address], [place], [place], [id number], [place]. tel:[phone] Office/outpa tient visit,est, [facility], [address], [place], [place], [id number], [place] tel:[phone] [facility] JOINT PAIN-UP/ARMLAT ERAL EPICONDYLITIS 1 Strecker Matthew. [address] [facility], [address], [place], [place], [id number], [place]. tel:[phone] Office/outpa tient visit,est, [facility], [address] [address], [place], [place], [id number], [place] tel:[phone] [facility] [employer] [facility] LATERAL EPICONDYLITIS January-2 4-201 1 Zenobia Castro. [address] [facility], [address], [place], [place], [id number], [place]. tel:[phone] [facility], [address] [address], [place], [place], [id number], [place] tel:[phone] [facility] No Information January-0 3-201 1 Zenobia Castro. [address] [facility], [facility] [address], [place], [place], [id number], [place]. tel:[phone] Office consultation , [facility], [address] [address], [place], [place], [id number], [place] tel:[phone] [facility] [employer] [facility] LATERAL EPICONDYLITIS 0 3-201 1 Zenobia Castro. [address] [facility], [address] [address], [place], [place], [id number], [place]. tel:[phone] Family History Family Member Type Diagnosis Age [...]
--- OUTSIDE RECORDS SUMMARY | 2025-04-19 08:58 | XMS_ITS | Clinical Summary ---
Author Organization [facility] Address [address] [place] [address] Care Team Providers Care Hard Tile Setter Name Role Phone Unavailable Primary Care Provider Unavailabl e Source Comments [facility] [employer],non-owned Affiliates and Associated Physician Practices is amultiple site organization consisting of ambulatory clinics and hospital sitesin [place] and [place]. This disclosure is being madepursuant to the Care Everywhere program and may not contain all information available regarding this patient. 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
--- OUTSIDE RECORDS SUMMARY | 2025-04-19 08:58 | XMS_ITS | Clinical Summary ---
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
--- OUTSIDE RECORDS SUMMARY | 2025-04-19 08:58 | XMS_ITS | Encounter Summary ---
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 [id number]. All material will be returned. 05/29/2021 5:00 PM CDT [facility] Disclaimer The performance characteristics of all immunohistochemical and indirect immunofluorescence stains (if any) cited in this report were determined by the Histopathology Laboratory of [facility]. Some of these tests were developed [...] pathologist. 05/29/2021 5:00 PM CDT [facility] Case Report Surgical Pathology Report Case: [id number] Authorizing Provider: Bernice Swanson MD Collected: 05/23/2021 03:32 PM Ordering Location: [facility] Received: 05/28/2021 03:32 PM Pathologist: Ruba Lyons MD Specimen: Slide Consultation 05/29/2021 5:00 PM CDT [facility] Embedded Images 05/29/2021 5:00 PM CDT [facility] Pathology/Cytolo gy SURGICAL PATHOLOGY CONSULTATION AND REPORT ON REFERRED SLIDES PREPARED ELSEWHERE / Unknown 05/23/2021 3:32 PM CDT 05/28/2021 3:32 PM CDT us Bernice Swanson MD LAB - PATHOLOGY/CYTOLOGY ORDERAB LES Final Result [facility] [address] [place] [address], [facility] [phone] documented in this encounter Visit Diagnoses Diagnosis Illness, unspecified documented in this encounter
== END 2025-04-19 08:51 | disposition home or self-care (01) ==
PROVIDERS: PCP Nurse Practitioner Family; Visit Provider Nurse Practitioner Family
DX: R07.9 Chest pain, unspecified (principal); I10 Essential (primary) hypertension
CPT/HCPCS: 93017

== ENCOUNTER 2025-06-08 19:30 | Emergency (ER) | payer OTHER, SELFPAY ==
--- OUTSIDE RECORDS SUMMARY | 2012-06-01 04:40 | XMS_ITS | Continuity of Care Document ---
Author Organization [facility] Address [address] [place] [address] Phone Care Team Providers Care [facility] Agent Name Role Phone Uzma NARANJO R Unavailable Unavailable Allergies, Adverse Reactions, Alerts Substance Reaction Status Criticality morphine Active No Information No Known Allergies Active No Inform ation Medications Medication Instructions Dosage Effective Dates (start - stop) Status Comments Naprosyn 500 mg Tab Take 1 tablet by twice daily with food. - Active Procedures Procedure Date Medical Record Copy Medical Record Copy Per Page Affidavit Rating Letter Postop followup visit Supplemental Report Postop followup visit X-ray exam of elbow, complete 2 Supplemental Report Postop followup visit Supplemental Report Wrist Brace Tital Gay Tenotomy Lat Or Med Elbow W Tendon Repr Arm Sling W/ Foam Pad Office/outpatient visit,est, low 2011 Supplemental Report Medical Record Copy Medical Record Copy Per Page Affidavit Office/outpatient visit,est, mod 2010 Supplemental Report Office/outpatient visit,est, mod 2010 Supplemental Report Office/outpatient visit,est, mod 2010 Inject tndn sheath/lgmnt/gangl cyst Depo Medrol Methylprednisolone 40 MG inj Supplemental Report Special Narrative Report Office/outpatient visit,est, low 2010 Injection, tendon origin/insertion Depo Medrol Methylprednisolone 40 MG inj Supplemental Report Office/outpatient visit,est, low 2010 Supplemental Report Office consultation, moderate 1 Advance Directives Directive Yes / No Effective Date File Name No Information Encounters Encounter Description Practice Location Reason(s) For Visit Diagnoses Date Provider Providers Copied on Encounter [facility], [address] [place] [address], [id number], tel:[phone] [facility] No Information 2 Aaranson R. [address] [place] [address], [id number], . tel:[phone] [facility], [address] [place] [address], [id number], tel:[phone] [facility] No Information 2 Administrati ve Provider. [address] [place] [address], [id number], [place]. tel:[phone] Rating Letter [facility], [address] [place] [address], [id number], [place] tel:[phone] [facility] No Information 2 Zenobia Castro. [address] [place] [address], [id number], [place]. tel:[phone] [facility], [address] [place] [address], [id number], tel:[phone] [facility] LATERAL EPICONDYLITIS 2 Zenobia Castro. [address] [place] [address], [place], [id number], [place]. tel:[phone] [facility], [address] [address], [place], [place], [id number], [place] tel:[phone] [facility] LATERAL EPICONDYLITISJ OINT PAIN-UP/ARM 2 Strecker Matthew. [address] [facility], [address] [address], [place], [place], [id number], [place]. tel:[phone] [facility], [address] [address], [place], [place], [id number], [place] tel:[phone] [facility] LATERAL EPICONDYLITIS 2 Strecker Matthew. [address], [address] [place] [address], [place], [place], [id number], [place]. tel:[phone] [facility], [address] [place] [address], [place], [place], [id number], [place] tel:[phone] [facility] LATERAL EPICONDYLITIS 2 Strecker Matthew. [address], [address] [place] [address], [place], [place], [id number], [place]. tel:[phone] Office/outpa tient visit,est, [facility], [address] [address], [place], [place], [id number], [place] tel:[phone] [facility] LATERAL EPICONDYLITIS Fe 2 Strecker Matthew. [address] [facility], [place] [address], [place], [place], [id number], [place]. tel:[phone] [facility], [address] [place] [address], [place], [place], [id number], [place] tel:[phone] [facility] No Information 0 2 Administrati ve Provider. [address], [address] [place] [address], [place], [place], [id number], [place]. tel:[phone] Office/outpa [place]ient visit,est, [facility], [address] [facility] [address], [place], [place], [id number], [place] tel:[phone] [facility] LATERAL EPICONDYLITIS 1 Strecker Matthew. [address] [facility], [address], [place], [place], [id number], [place]. tel:[phone] Office/outpa tient visit,est, [facility], [address] [facility] [address], [place], [place], [id number], [place] tel:[phone] [facility] LATERAL EPICONDYLITIS 1 Strecker Matthew. [address] [facility], [place] [address], [place], [place], [id number], [place]. tel:[phone] Office/outpa tient visit,est, [facility], [address] [facility] [address], [place], [place], [id number], [place] tel:[phone] [facility] JOINT PAIN-UP/ARMLAT ERAL EPICONDYLITIS 1 Strecker Matthew. [address] [facility], [facility] 100, [place], [place], [id number], [place]. tel:[phone] [facility], [address] [facility] [address], [place], [place], [id number], [place] tel:[phone] [facility] No Information 1 Charancker Matthew. [address] [facility], [facility] [address], [place], [place], [id number], [place]. tel:[phone] Office/outpa tient visit,est, [facility], [address] [facility] [address], [place], [place], [id number], [place] tel:[phone] [facility] JOINT PAIN-UP/ARMLAT ERAL EPICONDYLITIS 1 Strecker Matthew. [address] [facility], [address], [place], [place], [id number], [place]. tel:[phone] Office/outpa tient visit,est, [facility], [address] [address], [place], [place], [id number], [place] tel:[phone] [facility] LATERAL EPICONDYLITIS January-2 4-201 1 Zenobia Castro. [address] [facility], [address], [place], [place], [id number], [place]. tel:[phone] [facility], [address] [address], [place], [place], [id number], [place] tel:[phone] [facility] No Information January-0 3-201 1 Zenobia Castro. [address], [facility] [address], [place], [place], [id number], [place]. tel:[phone] Office consultation , [facility], [address] [address], [place], [place], [id number], [place] tel:[phone] [facility] LATERAL EPICONDYLITIS 0 3-201 1 Zenobia Castro. [address], [address] [address], [place], [place], [id number], [place]. tel:[phone] Family History Family Member Type Diagnosis Age At Onset No Information Payers Payer name Insurance type Covered republican ID Authoriza tion(s) No Information Social History Type Description Quantity Date Captured Comments Sex Male Smoking Status No Information Chief Complaint And Reason For Visit No Information Reason For Referral Reason For Referral No Information History Of Present Illness Encounter Date Complaint History Of Prese nt Illness No Information Functional Status Date Functional Assessmen t No Information Instructions Date Instruction Additional Infor mation No Information Assessments Type Assessment Date No Information Patient Care Teams Name Effective Dates (start - stop) Status Members No Information
--- OUTSIDE RECORDS SUMMARY | 2012-06-01 04:40 | XMS_ITS | Continuity of Care Document ---
Author Organization [facility] Address [address] [place] [address] Phone Care Team Providers Care Project Management Manager Name Role Phone Uzma NARANJO R Unavailable [...] followup visit Supplemental Report Wrist Brace Tital Channing Tenotomy Lat Or Med Elbow W Tendon [...] Date Provider Providers Copied on Encounter [facility], [address] [place] [address], [id number], tel:[phone] [facility] No Information 2 Aaranson R. [address] [place] [address], [id number], . tel:[phone] [facility], [address] [place] [address], [id number], tel:[phone] [facility] No Information 2 Administrati ve Provider. [address] [place] [address], [id number], [place]. tel:[phone] Rating Letter [facility], [address] [place] [address], [id number], [place] tel:[phone] [facility] No Information 2 Zenobia Castro. [address] [place] [address], [id number], [place]. tel:[phone] [facility], [address] [place] [address], [id number], tel:[phone] [facility] LATERAL EPICONDYLITIS 2 Zenobia Castro. [address] [place] [address], [place], [id number], [place]. tel:[phone] [facility], [address] [address], [place], [place], [id number], [place] tel:[phone] [facility] LATERAL EPICONDYLITISJ OINT PAIN-UP/ARM 2 Strecker Matthew. [address] [facility], [address] [address], [place], [place], [id number], [place]. tel:[phone] [facility], [address] [address], [place], [place], [id number], [place] tel:[phone] [facility] LATERAL EPICONDYLITIS 2 Strecker Matthew. [address] [facility], [address] [address], [place], [place], [id number], [place]. tel:[phone] [facility], [address] [place] [address], [place], [place], [id number], [place] tel:[phone] [facility] LATERAL EPICONDYLITIS 2 Strecker Matthew. [address] [facility], [address] [address], [place], [place], [id number], [place]. tel:[phone] Office/outpa tient visit,est, [facility], [address] [address], [place], [place], [id number], [place] tel:[phone] [facility] LATERAL EPICONDYLITIS Fe 2 Strecker Matthew. [address] [facility], [address] [address], [place], [place], [id number], [place]. tel:[phone] [facility], [address] [place] [address], [place], [place], [id number], [place] tel:[phone] [facility] No Information 0 2 Administrati ve Provider. [address] [facility], [address] [address], [place], [place], [id number], [place]. tel:[phone] Office/[place]pa [place]ient visit,est, [facility], [address] [facility] [address], [place], [place], [id number], [place] tel:[phone] [facility] LATERAL EPICONDYLITIS 1 Strecker Matthew. [address] [facility], [address], [place], [place], [id number], [place]. tel:[phone] Office/[place]pa [place] visit,est, [facility], [address] [facility] [address], [place], [place], [id number], [place] tel:[phone] [facility] LATERAL EPICONDYLITIS 1 Strecker Matthew. [address] [facility], [address] [address], [place], [place], [id number], [place]. tel:[phone] Office/outpa [place]ient visit,est, [facility], [address] [facility] [address], [place], [place], [id number], [place] tel:[phone] [facility] JOINT PAIN-UP/ARMLAT ERAL EPICONDYLITIS 1 Strecker Matthew. [address] [facility], [facility] 100, [place], [place], [id number], [place]. tel:[phone] [facility], [address] [facility] [address], [place], [place], [id number], [place] tel:[phone] [facility] No Information 1 Charancker Matthew. [address] [facility], [facility] [address], [place], [place], [id number], [place]. tel:[phone] Office/outpa tient visit,est, [facility], [address] [facility] [address], [place], [place], [id number], [place] tel:[phone] [facility] JOINT PAIN-UP/ARMLAT ERAL EPICONDYLITIS 1 Strecker Matthew. [address] [facility], [address], [place], [place], [id number], [place]. tel:[phone] Office/outpa tient visit,est, [facility], [address] [address], [place], [place], [id number], [place] tel:[phone] [facility] LATERAL EPICONDYLITIS January-2 4-201 1 Zenobia Castro. [address] [facility], [address], [place], [place], [id number], [place]. tel:[phone] [facility], [address] [address], [place], [place], [id number], [place] tel:[phone] [facility] No Information January-0 3-201 1 Zenobia Castro. [address] [facility], [facility] 100, [place], [place], [id number], [place]. tel:[phone] Office consultation , [facility], [address] [address], [place], [place], [id number], [place] tel:[phone] [facility] LATERAL EPICONDYLITIS 0 3-201 1 Zenobia Castro. [address] [facility], [address] [address], [place], [place], [id number], [place]. tel:[phone] Family History Family Member Type Diagnosis Age [...]
--- NOTE | ~2025-06-08 | CT_ITS ---
EXAMINATION: CT facial & cervical spine wo DATE: 06/08/2025 21:37 INDICATION: Head injury. TECHNIQUE: Computed tomography (CT) of the maxillofacial region and cervical spine was performed without intravenous contrast. Automated exposure control and iterative reconstruction technique were employed. The dose-length product was 403.47 mGy-cm. COMPARISON: None FINDINGS: MAXILLOFACIAL CT: There are fractures of the medial wall and floor of left orbit and posterolateral wall of left maxillary sinus. There is gas in the left orbit. Left-sided proptosis is noted. There is mucosal thickening in the paranasal sinuses. There is leftward deviation of anterior nasal septum and rightward deviation of posterior nasal septum. The mastoid air cells are normal. CERVICAL SPINE CT: There is mild scarring at the lung apices. C1 ring is ununited posteriorly. Alignment is normal. Vertebral body heights are normal. There is mildly decreased disc height at C4-C5 and severely decreased disc height at C5-C6. There is interbody fusion at C4-C5 and C5-C6. The bridging endplate osteophytes from C4 to T1, consistent with diffuse idiopathic skeletal hyperostosis (DISH). There is ossification of posterior longitudinal ligament intermittently from C2 to C7. There is multilevel facet joint osteoarthritis, severe on the left at C2- C3. There is mild neural foraminal stenosis at multiple levels on either side. There is mild central canal stenosis at C2-C3, C3-C4, C4-C5, and C5-C6. There is moderate central canal stenosis at C6-C7. IMPRESSION: 1. Fractures of the medial wall and floor of left orbit and posterolateral wall of left maxillary sinus with gas in the left orbit and left-sided proptosis. 2. Moderate cervical spondylosis. 3. DISH. Reviewed, dictated and finalized at location E.
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
[2025-06-08 19:33] VITALS: BP 164/105; PULSE 74; RESP 18; TEMP 36.6; O2SAT 100
--- OUTSIDE RECORDS SUMMARY | 2025-06-08 19:33 | XMS_ITS | Data Portability ---
Author Organization [place] [facility] [employer], Main Office Address [address] [place] [address] Assessment Encounter Date Assessment Date Assessment LastModified by Organization Details LastModified Time 11/26/2022 11/26/2022 Patient has shoulder pain right. He has had surgery in the past for rotator cuff repairs including last 20 year ago. He states he feels like he has retorn it. He does have some arthritis in the shoulder as well which may be causing some of this pain. I have recommended a course of therapy and anti-inflammator y medication and we will get an MRI scan to rule out a new tear. For prescription drug management will try Voltaren 75 mg. For pain and inflammation. I will see him back after the MRI scan is done, as he has failed conservative treatment to date. [email or web address] Not available 11/26/2022 11:42:37 12/10/2022 12/10/2022 Patient returns shoulder pain right. He presents with an MRI scan that demonstrates a little bit of tendinitis but overall not bad looks pretty good the repair seemed to be holding fine apparently he had another incision but Dr. Bernardo did take more the distal clavicle out about a year ago unfortunately continues to be somewhat symptomatic mainly about the rotator cuff. Based on what I see I do not see any indication of surgery should be performed at this point recommend continue with anti-inflammator y medication I gave him Voltaren last month as well as an exercise program. I will see him back in a month for follow-up if he continues to be symptomatic can consider reinjection of the shoulder. [email or web address] Not available 12/10/2022 10:31:50 Plan of Treatment Reminders Order Date Submit Date Provider Last Modified By Organization Details Last Modified Time Details Appointments None recorded. Lab None recorded. Referral physical therapist referral - please contact patient to schedule 2022 023 [facility] (Outpatient Physical Therapy), [address], [place], [address], 12:10:25 Procedures None recorded. Surgeries None recorded. Imaging MRI, shoulder, w/o contrast - please contact pt to schedule, pt will need images on a disc to bring to followup appt 2022 023 [facility], [address], [place], [address], 3 11:40:35 Medication Orders diclofenac sodium 75 mg tablet,del ayed release 2022 023 [email or web address] [facility] [id number], [facility] [address], [place], [address], 11:43:27 Patient TargetsNo targets recorded. Patient InstructionsNo instructions recorded. Reason for Referral Physical Therapist Referral for Pain of right shoulder joint please contact patient to schedule Referring Physician: Jim Dave, Orthopedic Surgery, Encounter Date: 11/26/2022 Results Created Date Observation Date Name Description Value Unit Range Abnormal Flag Note LastModifiedBy Organization Detail LastModifiedTime 10/12/1906/24/2021 XR, shoul hellen, 2 or more view No observ ation record ed. [id number] Not Available 11/04/2022 19:15:57 10/12/19 23 09/01/2021 MRI, shoul hellen, w/o contr ast No observ ation record ed. [id number] Not Available 11/04/2022 19:15:57 10/12/19 23 10/21/2021 XR, chest , 1 view No observ ation record ed. [id number] Not Available 11/04/2022 19:15:57 10/15/19 XR, shoul hellen, 2 or more view No observ ation record ed. [id number] [place] [address], [place], [address], 11/04/2022 19:15:57 12/03/19 23 12/01/2022 MRI, shoul hellen, w/o contr ast No observ ation record ed. [email or web address] [facility] [address], [place], [address], 12/02/2022 12:02:43 Result Notes None recorded. Problems Name Problem SNOMED Code Status Onset Date Resolution Date Notes Provider Name and Address Organization Details Recorded Time Osteoarthr itis of right glenohumer al joint 8806814484534 101 Active 2022 Not Available [facility] 19:14:40 Pain of right shoulder joint 2409835643138 9100 Active 2022 Lashanda Levin, ATC L null, [employer] [facility] 11:29:37 Full thickness rotator cuff tear 006616304 Active 2022 Jim Dave MD [address] [place] [address], [address] , [facility] [facility] 11:43:09 Problem Notes None recorded. Procedures Surgical History Date Name Laterality Status Provider Name and Address Organization Details Recorded Time Shoulder completed Not Available [facility] 19:13:53 Hernia Repair completed Not Available [facility] 11/04/2022 19:13:53 Imaging Results None recorded. Procedure Notes None recorded. Medical Equipment None Reported. Allergies Allergen ID Allergen Name Allergen Category Reaction Reaction Severity Criticality Documentation Date Start Date Code Code System Note Provider Name and Address Organization Details Recorded Time 78579 oxycodone medicatio n Not available Not available Not available 11/04/2022 7804 RxNorm Not Available [facility] 19:15:55 49711 morphine medicatio n Not available Not available Not available 11/04/2022 7052 RxNorm Not Available [facility] 19:15:56 Medications Name Sig Start Date Stop Date Status Note LastModified by Organization Details LastModified Time cyclobenzap rine 10 mg tablet active Not Available Not Available Not Available atorvastati n 40 mg tablet TAKE 1 TABLET BY MOUTH EVERY DAY active Not Available Not Available No t Available prednisone 10 mg tablet PLEASE SEE ATTACHED FOR DETAILED DIRECTION S active Not Available Not Available No t Available sulfamethox azole 800 mg-trimetho prim 160 mg tablet TAKE 1 TABLET BY MOUTH EVERY 12 HOURS 10/15 completed Not Available Not Available Not Available tramadol 50 mg tablet TAKE ONE TABLET BY MOUTH EVERY 6HR NEEDED FOR PAIN 10/15 completed Not Available Not Available Not Available glimepiride 1 mg tablet TAKE 1 TABLET BY MOUTH IN THE MORNING AND 1/2 TABLET IN THE EVENING active Not Available Not Available No t Available prednisone 10 mg tablets in a dose pack Take 1 tab by mouth, 3 times a day for 3 daysTake 1 tab by mouth 2 times a day for 2 daysTake 1 tab by mouth once a day for 1 day active Not Available Not Available No t Available oxycodone-a cetaminophe n 5 mg-325 mg tablet TAKE 1 - 2 TABLET(S) BY MOUTH EVERY 6 HOURS NEEDED FOR PAIN 10/15 completed Not Available Not Available Not Available tamsulosin 0.4 mg capsule TAKE 1 CAPSULE BY MOUTH EVERYDAY AT BEDTIME 10/15 completed Not Available Not Available Not Available Kenalog 10 mg/mL suspension for injection In office injection administe red by the provider active [facility]: 0003- 0494- 20 Not Available Not Available Not Available baclofen 10 mg tablet TAKE 1 TABLET BY MOUTH UP TO THREE TIMES A DAY NEEDED FOR HEADACHES USE AT THE ONSET OF HEADACHE. 10/15 completed Not Available Not Available Not Available pantoprazol e 40 mg tablet,tammy yed release TAKE 1 TABLET BY MOUTH EVERYDAY AT BEDTIME active Not Available Not Available No t Available diclofenac sodium 75 mg tablet,tammy yed release TAKE 1 TABLET BY MOUTH TWICE A DAY 2022 active Not Available Not Available Not Avai lable ibuprofen 600 mg tablet TAKE 1 TABLET BY MOUTH EVERY 6 HOURS NEEDED FOR PAIN 10/15 completed Not Available Not Available Not Available ondansetron 4 mg disintegrat ing tablet DISSOLVE ONE TABLET BY MOUTH EVERY 6 HOURS 10/15 completed Not Available Not Available Not Available losartan 100 mg tablet TAKE 1 TABLET BY MOUTH EVERYDAY AT BEDTIME active Not Available Not Available No t Available metformin ER 500 mg tablet,exte nded release 24 hr TAKE 1 TABLET BY MOUTH EVERY DAY active Not Available Not Available No t Available finasteride 5 mg tablet TAKE 1 TABLET BY MOUTH EVERY DAY active Not Available Not Available No t Available sildenafil (pulmonary hypertensio n) 20 mg tablet TAKE 5 TABLETS BY MOUTH DAILY SEXUAL ACTIVITY AND ADMINISTE R DOSES AT LEAST 4 TO 6 HOURS APART active Not Available Not Available No t Available ropivacaine (PF) 5 mg/mL (0.5 %) injection solution Take 20 mg by injection route. active [facility] 82996 -064- 01 Not Available Not Available Not Available Vitals Date Recorded Body mass index (BMI) Body height Body weight Provider Name and Address Organization Details Last Updated DateTime 10/15/2022 27.8 kg/m2 172.72 cm 74534.4 g Not Available [employer] 11/04/2022 19:14:03 Date Recorded Body height Body mass index (BMI) Body weight Provider Name and Address Organization Details Last Updated DateTime 11/26/2022 172.72 cm 27.4 kg/m2 78306.63 g Lashanda Levin ATC L [employer] 11/26/2022 11:29:04 Date Recorded Body height Body mass index (BMI) Body weight Provider Name and Address Organization Details Last Updated DateTime 12/10/2022 170.18 cm 28.2 kg/m2 28181.63 g Mela Gardiner CNA [employer] 12/10/2022 10:13:43 Social History None recorded. Functional Status Question Answer Note LastModified by Organizat ion Details LastModified Time What is your level of alcohol consumption? Occasional [id number] Information not available 11/04/2022 Mental Status None recorded. Family History Relationship Description Onset Age of this Age Resolved Age Notes LastModified by Organization Details LastModified Time Unspecified Relation Diabetes mellitus [id number] Not available 11/04/2022 19:13:54 Medical History Condition Response ARTHRITIS Y URINARY/BLADDER/KIDNEY PROBLEMS Y Past Encounters Encounter ID Performer Location Encounter Start Date Encounter Closed Date Diagnosis/Indication Diagnosis SNOMED-CT Code Diagnosis ICD10 Code Diagnosis IMO Codes Diagnosis Note [id number] Jim Dave MD [facility] [place] [address] [place] [address] 10/15/2022 00:00:00 10/15/2022 13:23:21 [id number] Jim Dave MD [facility] [place] [address] [place] [address] 11/26/2022 11:25:11 11/26/2022 11:50:36 Osteoarthritis of right glenohumeral joint 9060504180 638635 M19.011 Pain of ri ght shoulder joint 1032089019 2067896 M25.511 Full thick ness rotator cuff tear 073087799 M75.121 [id number] Jim Dave MD [facility] [place] [address] [place] [address] 12/10/2022 10:10:25 12/10/2022 12:28:04 Osteoarthritis of right glenohumeral joint 3270322156 112661 M19.011 Pain of ri ght shoulder joint 9461439354 1267074 M25.511 Full thick ness rotator cuff tear 223400325 M75.121 Health Concerns Section Related Observation LastModified by Organization Detai ls LastModified Time None Recorded Concern Status LastModified by Organization Details LastModified Time None Recorded Advance Directives Directive None Recorded Payers Insurance Date Sequence Insurance Name Policy Number Policy Gomez Covered Member ID Gomez Member ID Guarantor Name 10/26/2023 1 [facility] (MEDICARE REPLACEMENT HMO) [id number] Faizan Whiteside [id number] Faizan Whiteside Notes Date Note Type Note Provider Name and Address Organization Details Recorded Time 11/26/2022 text/html Patient returns shoulder pain right. He has had 2 operations on her shoulder for rotator cuff pathology and continues to have pain. He states that it feels like he has re-ruptured his shoulder although it should be noted he does have arthritis in the right shoulder. Jim Dave MD [address], [place], [address], [facility] [employer] [facility] 11/26/2022 11:43:24 12/10/2022 text/html Patient returns shoulder pain right. He presents with an MRI scan. The MRI shows tendinitis but not a tear. He has a distal clavicle excision is goal thickening of the capsule but he does not he has full motion. Jim Dave MD [address], [place], [address], [place] [facility] 12/10/2022 10:32:07
--- OUTSIDE RECORDS SUMMARY | 2025-06-08 19:33 | XMS_ITS | Encounter Summary ---
Author Organization [facility] Address [address] [place] [address] Care Team Providers Care Marketing Strategist Name Role Phone Unavailable Primary Care Provider Unavailabl e Encounter Details Date Type Department Care Team (Late st Contact Info) Description 07/16/2023 Lab Requisition [facility] - DermPath Lab [address] [facility] [place] [phone] Colette Saavedra PA [address] [place] [phone] Neoplasm of uncertain behavior of skin Social History Tobacco Use Types Packs/Day Years Used Date Smoking Tobacco: Never Assessed Sex and Gender Information Value Date Recorded Sex Assigned at Not on file 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 Gender Identity Not on file Sexual Orientation Not on file documented as of this encounter Plan of Treatment Not on file documented as of this encounter Procedures Procedure Name Priority Date/Time Associated Diagnosis Comments DERMATOPATHOLOGY Routine 07/16/2023 12:0 0 AM HERB COUNSELOR Neoplasm of uncertain behavior of skin documented in this encounter Results * DERMATOPATHOLOGY (07/16/2023 12:00 AM HERB COUNSELOR) Case Report Dermatopathology Report Case: [id number] Authorizing Provider: Colette Saavedra PA Collected: 07/16/2023 12:00 AM Ordering Location: [facility] DermPath Lab Received: 07/19/2023 01:14 PM Pathologist: Tatianna Anderson MD Specimen: Skin, left cheek 1:01 PM HERB COUNSELOR DERMATOPATHOLOGY LABORATORY Final Diagnosis Specimen A. SKIN, left cheek: ACTINIC KERATOSIS (L57.0) EPIDERMAL NECROSIS SUGGESTIVE OF EXCORIATION (L98.499) (see microscopic description) 1:01 PM [facility] DERMATOPATHOLOGY LABORATORY at [address] [facility] Clinical History Basal Cell Carcinoma 1:01 PM [facility] DERMATOPATHOLOGY LABORATORY Gross Description Specimen A: Received is one formalin filled container labeled with the patient's name and designated left cheek. The specimen consists of a shave biopsy measuring 7x5x1 mm. Jar 0. 1:01 PM [facility] DERMATOPATHOLOGY LABORATORY Microscopic Description Specimen A. SKIN, left cheek: There is focal parakeratosis. The lower half of the epidermis shows disorderly maturation of keratinocytes with nuclear pleomorphism. The lesion extends to the base as follicular extension. The epidermis is focally necrotic and covered with a scale-crust. There is fibrin at the base. 1:01 PM [facility] DERMATOPATHOLOGY LABORATORY Disclaimer An external and internal positive and negative controls are appropriate for the histochemical, immunohistochemical and immunofluorescence stain(s) in this case (if any), except where stated explicitly. The performance characteristics of the stain(s) cited in this report were developed and its performance characteristic determined by the Dermatopathology Laboratory at [facility], directed by Dr. Heber Carlton. These tests need not be, and therefore are not, approved by the [place] Food and Drug Administration. The tests are used for clinical purposes. Billing Codes Specimen Charges Stain Charges 19184 1 1:01 PM [facility] DERMATOPATHOLOGY LABORATORY Embedded Images 1:01 PM [facility] DERMATOPATHOLOGY LABORATORY Pathology/Cytolog y TISSUE SPECIMEN FROM SKIN / Unknown 07/16/2023 07/19/2023 1:14 PM [facility] - PATHOLOGY/CYTOLOGY OR DERABLES Final Result DERMATOPATHOLOGY LABORATORY [facility] - Department of Dermatology [address] [place] [address], [facility] [phone] documented in this encounter Visit Diagnoses Diagnosis Neoplasm of uncertain behavior of skin documented in this encounter
--- OUTSIDE RECORDS SUMMARY | 2025-06-08 19:34 | XMS_ITS | Clinical Summary ---
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
--- OUTSIDE RECORDS SUMMARY | 2025-06-08 19:34 | XMS_ITS | Clinical Summary ---
Author Organization [facility] Address [address] [place] [address] Care Team Providers Care Road Sign Installer Name Role Phone Unavailable Primary Care Provider Unavailabl e Source Comments [email or web address],non-owned Affiliates and Associated Physician Practices is amultiple site organization consisting of ambulatory clinics and hospital sitesin [place], [place], [place] and [place]. This disclosure is being madepursuant to the Care Everywhere program and may not contain all information available regarding this patient. Last updated 

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
--- OUTSIDE RECORDS SUMMARY | 2025-06-08 21:20 | XMS_ITS | Encounter Summary ---
Author Organization [facility] Address [address] [place] [address] Care Team Providers Care Mutual Fund Analyst Name Role Phone Unavailable Primary Care Provider Unavailabl e Encounter Details Date Type Department Care Team (Late st Contact Info) Description 07/16/2023 Lab Requisition [facility] - DermPath Lab [address] [facility] [place] [phone] Colette Saavedra PA [address] [place] [phone] Neoplasm of uncertain behavior of skin Social History Tobacco Use Types Packs/Day Years Used Date Smoking Tobacco: Never Assessed Sex and Gender Information Value Date Recorded Sex Assigned at Not on file 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 Gender Identity Not on file Sexual Orientation Not on file documented as of this encounter Plan of Treatment Not on file documented as of this encounter Procedures Procedure Name Priority Date/Time Associated Diagnosis Comments DERMATOPATHOLOGY Routine 07/16/2023 12:0 0 AM LEMON GROWER Neoplasm of uncertain behavior of skin documented in this encounter Results * DERMATOPATHOLOGY (07/16/2023 12:00 AM LEMON GROWER) Case Report Dermatopathology Report Case: [id number] Authorizing Provider: Colette Saavedra PA Collected: 07/16/2023 12:00 AM Ordering Location: [facility] DermPath Lab Received: 07/19/2023 01:14 PM Pathologist: Tatianna Anderson MD Specimen: Skin, left cheek 1:01 PM LEMON GROWER DERMATOPATHOLOGY LABORATORY Final Diagnosis Specimen A. SKIN, left cheek: ACTINIC KERATOSIS (L57.0) EPIDERMAL NECROSIS SUGGESTIVE OF EXCORIATION (L98.499) (see microscopic description) 1:01 PM [facility] at [address] [facility] Clinical History Basal Cell Carcinoma 1:01 PM [facility] Gross Description Specimen A: Received is one formalin filled container labeled with the patient's name and designated left cheek. The specimen consists of a shave biopsy measuring 7x5x1 mm. Jar 0. 1:01 PM [facility] Microscopic Description Specimen A. SKIN, left cheek: There is focal parakeratosis. The lower half of the epidermis shows disorderly maturation of keratinocytes with nuclear pleomorphism. The lesion extends to the base as follicular extension. The epidermis is focally necrotic and covered with a scale-crust. There is fibrin at the base. 1:01 PM [facility]ERMATOPATH[facility]AT[facility] Disclaimer An external and internal positive and negative controls are appropriate for the histochemical, immunohistochemical and immunofluorescence stain(s) in this case (if any), except where stated explicitly. The performance characteristics of the stain(s) cited in this report were developed and its performance characteristic determined by the Dermatopathology Laboratory at [facility], directed by Dr. Heber Carlton. These tests need not be, and therefore are not, approved by the [place] Food and Drug Administration. The tests are used for clinical purposes. Billing Codes Specimen Charges Stain Charges 15984 1 1:01 PM [facility] Embedded Images 1:01 PM [facility] Pathology/Cytolog y TISSUE SPECIMEN FROM SKIN / Unknown 07/16/2023 07/19/2023 1:14 PM [facility] - PATHOLOGY/CYTOLOGY OR DERABLES Final Result DERMATOPATHOLOGY LABORATORY [facility] - Department of Dermatology [address] [place] [address], [facility] [phone] documented in this encounter Visit Diagnoses Diagnosis Neoplasm of uncertain behavior of skin documented in this encounter
--- OUTSIDE RECORDS SUMMARY | 2025-06-08 21:21 | XMS_ITS | Clinical Summary ---
Author Organization [facility] Address [address] [place] [address] Care Team Providers Care Soft Work Wrapper Examiner Name Role Phone Unavailable Primary Care Provider Unavailabl e Source Comments [facility] [facility],non-owned Affiliates and Associated Physician Practices is amultiple site organization consisting of ambulatory clinics and hospital sitesin [place], [place], [place] and [place]. This disclosure is being madepursuant to the Care Everywhere program and may not contain all information available regarding this patient. Last updated 18.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
--- OUTSIDE RECORDS SUMMARY | 2025-06-08 21:21 | XMS_ITS | Clinical Summary ---
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
[2025-06-08] MEDS: TETRACAINE HCL 0.5% OPHTH SOLN 4 ML BTL 1 DROP EACH EYE (21:42)
[2025-06-08] MEDS: FLUORESCEIN SOD 1 MG/STRIP EACH EYE (21:42)
[2025-06-08] MEDS: TETANUS,DIPHTHERIA,AC PERTUSSIS ADULT (0.5 ML) BOOSTRIX IM (21:42)
[2025-06-08 22:00] VITALS: BP 145/87; PULSE 68; RESP 18; O2SAT 100
[2025-06-08 23:30] VITALS: BP 150/80; PULSE 69; RESP 18; TEMP 36.5; O2SAT 100
[2025-06-09 00:42] VITALS: BP 144/76; PULSE 64; RESP 18; O2SAT 98
== END 2025-06-09 00:55 | disposition short-term general hospital (02) ==
PROVIDERS: Emergency Provider Registered Nurse; PCP Nurse Practitioner Family
DX: S02.32XB Fracture of orbital floor, left side, initial encounter for open fracture (principal); S02.832B Fracture of medial orbital wall, left side, initial encounter for open fracture; T79.7XXA Traumatic subcutaneous emphysema, initial encounter; Z23 Encounter for immunization; I10 Essential (primary) hypertension; E78.5 Hyperlipidemia, unspecified; E11.9 Type 2 diabetes mellitus without complications; M16.0 Bilateral primary osteoarthritis of hip; K21.9 Gastro-esophageal reflux disease without esophagitis; Z98.1 Arthrodesis status; Z87.891 Personal history of nicotine dependence; Z79.899 Other long term (current) drug therapy; Y04.0XXA Assault by unarmed brawl or fight, initial encounter
CPT/HCPCS: 70450; 70486; 72125; 90471; 90715; 99285